=== PATIENT | male | born 1965 | race Caucasian/White ===

== ENCOUNTER → 2020-10-04 14:03 | Outpatient (BNVA) | payer MEDICARE, SELFPAY | PROVIDERS: PCP Internal Medicine; Referring Provider Internal Medicine; Visit Provider Anesthesiology | DX: M51.36 Other intervertebral disc degeneration, lumbar region (principal); M46.1 Sacroiliitis, not elsewhere classified | CPT/HCPCS: 99202 ==

== ENCOUNTER 2020-11-20 05:27 | Outpatient (REF) | payer MEDICARE, SELFPAY ==
--- NOTE | 2020-11-20 07:35 | FL_ITS ---
EXAMINATION: XR FLUOROSCOPY WITH IMAGES CLINICAL INFORMATION: Sacroiliitis COMPARISON: None. TECHNIQUE: Fluoroscopy performed by Pilar Williamson NP. Fluoroscopy time: 0.2 minutes DAP: 0.915 Gycm2 Images: 2 FINDINGS: There is needle positioned along bilateral inferior right SI joint with contrast opacifying the SI joint and adjacent soft tissues. FL/FL guidance in treatment room IMPRESSION: Fluoroscopy was provided to the referring physician for bilateral SI joint injection.
== END 2020-11-20 05:28 | disposition home or self-care (01) ==
LOC: HO.RADIR 05:27
PROVIDERS: Visit Provider Anesthesiology
DX: M46.1 Sacroiliitis, not elsewhere classified (principal)
CPT/HCPCS: 27096; J3300; Q9967

== ENCOUNTER 2025-07-10 13:52 | Outpatient (AMB) | payer MEDICARE, SELFPAY ==
--- NOTE | 2025-07-10 14:05 | A.OFFVIS_ITS ---
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 He comes to discuss about his sleep apnea diagnosed in 2023, and since then he has been prescribed a CPAP device with auto PAP mode , the mask he describes is fullface. His issue is that he has difficulty in using the mask. So he ends up using for a few hours every night and misses putting it on frequently. He remains tired most of the time, especially for the afternoons. Also complains of getting short of breath on walking fast or up hills, with a burning-like sensation in front of his chest. He has had history of coronary artery disease since 2016, when he had chest tightness and pain in the left wrist, on cardiac catheterization found to have coronary artery disease and requiring angioplasty and 1 stent. He say is recently his cardiac team has checked him with echocardiogram as well as has done a stress test, and told him that does not have any significant cardiac problem at this time. However during the stress test he say is he did get short of breath towards the end of the test and could not go beyond 8 minutes. His compliance remains poor, his use of CPAP is somewhat irregular and sub optimal. He was advised to use Flonase 1 or 2 sprays in each nostril before putting on the CPAP mask, and say is he still feels somewhat uncomfortable with the mask. He is here to discuss various possibilities / and different masks which may im prove his compliance. This gentleman is only moderately obese. He is single living by himself. Has been disabled due to back problem since 2000. He does look after his mother who is currently in an assisted living. He does have history of mild anxiety syndrome currently use thing bupropion 750 mg t.i.d., that is a relatively high dose. In spite of thus he does not get enough or good sleep at night. I talked to him if he feels depressed or anxious. And he admits that yes to some extent. He also has history of cervical as well as lumbar radiculopathy. Patient has the been only moderately obese and never. He does have some Flakita adjustment of the teeth , but no real retrognathia . Current complaints are that he tosses and turns around at night and does not getting good sleep. and feeling somewhat sluggish and tired during the daytime [facility] Medical History (Updated 07/10/25 @ 16:02 by Alberto Addison MD) Anxiety Dyspnea on exhalation MAYE on CPAP Sacroiliitis Disc degeneration, lumbar Review of Systems Const All systems reviewed & are unremarkable except as noted in HPI and below Eyes Reports no additional complaints ENT Reports nasal congestion (Only mild) and Reports neck pain Card Reports chest pain (Feeling of chest burning, not real pain) and Reports dyspnea on exertion (Mild to moderate, no cough or wheezing) Resp Reports as per HPI and Reports dyspnea on exertion (Mild to moderate, no cough or wheezing) GI Reports no additional complaints Reports no additional complaints Musc Reports back pain and Reports neck pain Skin/Breast Reports system reviewed and no additional complaints, except as documented Neuro Reports no additional complaints Psych Reports anxiety Endo Reports no additional complaints Melvin/Lymph Reports no additional complaints Aller/Immun Reports no additional complaints Physical Exam Vital Signs: Last Vital Signs Pulse 60 07/10/25 14:06 Resp 18 07/10/25 14:06 BP 110/65 07/10/25 14:06 Pulse Ox 97 07/10/25 14:06 Oxygen Delivery Method Room Air 07/10/25 14:06 BMI result Body Mass Index 29.2 Const General: healthy appearing, comfortable, no acute distress, alert, awake and anxious Orientation/consciousness: patient oriented x3 HEENT Head: Yes normal to inspection General nose exam: No nasal polyps present and No nasal discharge present Face and sinus: Yes sinuses nontender Mouth: oropharynx normal Throat: Yes posterior oropharynx normal Eyes General: appearance normal, both eyes and all related structures Neck Neck: Yes normal visual inspection, Yes no lymphadenopathy, Yes trachea midline and Yes no JVD Thyroid: Thyroid normal Chest Chest palpation & inspection: normal inspection of the chest, normal palpation of entire chest wall and no tenderness Resp Effort & Inspection: normal respiratory effort Auscultation: clear to auscultation bilaterally, no crackles, no rales, no rhonchi and no wheezes Cardio Palpation: normal PMI Rate: regular rate Rhythm: regular rhythm Heart sounds: no gallops and no murmurs Peripheral pulses: Peripheral pulses 2+ throughout GI Palpation (GI): Soft to palpation, nontender, No hepatosplenomegaly present and no masses Auscultation: normal bowel sounds Back/Spine/Pelvis Thoracic/Lumbar Spine: thoracic and lumbar spine normal to inspection and thoraco-lumbar ROM limited Skin General skin exam: no rashes or lesions noted Neuro General: patient oriented x3 and no focal motor deficits Cranial nerves: Yes CN's II-XII intact bilaterally Extrem General: Yes normal to inspection, Yes no clubbing, cyanosis or edema and Yes no calf tenderness Psych Appearance: grossly normal and well kempt Speech and movement: Normal speech and movement present Results Reviewed Results Reviewed: I reviewed the report of polysomnogram study at sleep medicine services on 01/31/2024 interpretation: The study showed fragmented sleep with moderate degree of obstructive sleep apnea that was most prominent in REM stage and supine position Total sleep time AHI 22. REM sleep AHI 43. Use of the auto CPAP with pressure setting of 6-16 was recommended Assessment & Plan Assessment & Plan (1) MAYE on CPAP: Comment: This gentleman was diagnosed to have obstructive sleep apnea, moderately severe, by is study on 01/31/2024. Has been on CPAP therapy with what he describes a fullface mask and Auto Pap mode 6-16 cmS . He claims that he has difficulty in using the CPAP as the mask remains uncomfortable. His compliance remains suboptimal. However we do not have any compliance report to go by. He say is that he was referred to see me over here as referred by his cardiol ogist, and told that he should come and discuss about using other masks are other mode of treatment such as BiPAP etc.. Code(s): G47.33 - Obstructive sleep apnea (adult) (pediatric) Category: Medical Plan: Before we recommend any different way of treating I told him that his best option is to continue using the CPAP. Need to get more information from his DME provider, about the type of mask that he is using, and need to look at a compliance report, if we can get 1. Mr. Ngo was not aware of which company he got the CPAP from. He is going to find out for sure and let us know. (2) Dyspnea on exhalation: Comment: He say is that when he walks fast or goes up hill he starts having shortness of breath which is more than expected, he does not have any cough or wheezing. He does get burning. Sensation in her front of a chest Has had echocardiogram and a stress test which has not shown any significant ischemia. I told him that we can do pulmonary function test to make sure that he does not have any pulmonary issue. And so he will be scheduled for pulmonary function test, and then we will discuss about . What to do Code(s): R06.09 - Other forms of dyspnea Category: Medical Plan: Patient scheduled for pulmonary function test, and will be rechecked in 2 months (3) Anxiety: Comment: I think he does have a component of anxiety. And may be some depression. He is on bupropion 750 mg t.i.d. that is a relatively large doze. I asked him to reconfirm the doze of bupropion. Code(s): F41.9 - Anxiety disorder, unspecified Category: Medical Plan: We discussed about the relaxation technique, when he feels anxious. He may need counseling. Orders: Orders PFT pulmonary function test Today R06.09 - Other forms of dyspnea Coding Level of Care Code New Pt Level 4 (98655) Diagnoses MAYE on CPAP G47.33 Dyspnea on exhalation R06.09 Anxiety F41.9
[2025-07-10 14:06] VITALS: BP 110/65; PULSE 60; RESP 18; O2SAT 97; BMI 29.2
--- OUTSIDE RECORDS SUMMARY | 2025-07-10 15:12 | XMS_ITS ---
Author Name [facility] Organization Unknown Encounters Encounter Type Encounter Reason Primary Diagnosis Location Date Ambulatory [facility] 08/26/2024 Care Team Organization Name Specialty Phone Email Start Date End Da te [facility] 03/11/2025 [facility] 09/23/20222023
--- OUTSIDE RECORDS SUMMARY | 2025-07-10 15:12 | XMS_ITS | Clinical Summary ---
Author Organization [place] [address] [address] [facility] Building Address [address] [place], [place] [address], [place] [address] Phone Care Team Providers Care Physician Recruiter Name Role Phone Christopher Daniels MD Primary Care Provider [phone] Allergies Active Allergy Reactions Criticality Noted Date Comments Bee Pollen 09/23/2024 Lisinopril 06/14/2021 Morphine Nausea And Vomiting 03/03/2018 Other Swelling Medium 07/08/2022 Medications amitriptyline (ELAVIL) 10 mg tablet Take 1 Tablet by mouth at bedtime for 180 days. 11/13/20 23 Active methocarbamoL (ROBAXIN) 750 mg tablet Take 1 Tablet by mouth. Active aspirin 81 mg EC tablet Take 81 mg by mouth daily. 03/03/20 18 Active glucose blood test strip Use to check blood sugars twice daily 04/19/20 24 Active blood-glucose meter kit Check blood sugar twice a day. 04/18/20 24 Active ONETOUCH DELICA LANCETS MISC Use to test blood sugars twice daily 04/19/20 24 Active EPINEPHrine (EPIPEN) 0.3 mg/0.3 mL injection Inject 0.3 mL (0.3 mg total) into the thigh if needed for anaphylaxis. Call 911 after use. 2 each 1 09/23/20 24 025 Active omeprazole (PriLOSEC) [address] capsuleIndicati ons:Dysphagia, unspecified type TAKE 1 CAPSULE BY MOUTH DAILY. TAKE IN AM ON EMPTY STOMACH, WAIT 30 MINS AND THEN EAT 90 capsule 3 01/09/20 25 Active metoprolol tartrate (LOPRESSOR) 25 mg tablet TAKE 1 TABLET BY MOUTH TWICE A DAY 180 tablet 1 03/23/20 25 Active cetirizine (ZyrTEC) 10 mg tablet Take 1 tablet (10 mg total) by mouth 1 (one) time each day. Active dapagliflozin propanediol (FARXIGA) 10 mg tablet Take 1 tablet (10 mg total) by mouth 1 (one) time each day. 90 tablet 1 03/28/20 25 Active allopurinoL (ZYLOPRIM) 100 mg tablet TAKE 2 TABLETS BY MOUTH EVERY DAY 180 tablet 1 04/11/20 25 Active B complex-vitamin C-folic acid (NEPHRO-MICHELLE) 0.8 mg tablet Take 1 tablet by mouth 1 (one) time each day. Active kassandra, Zingiber officinalis, 500 mg capsule Take by mouth. Active cholecalciferol (VITAMIN D-3) 50 mcg (2,000 unit) tablet Take 1 tablet (2,000 Units total) by mouth 1 (one) time each day. Active ascorbic acid (VITAMIN C) 500 mg tablet Take 1 tablet (500 mg total) by mouth 1 (one) time each day. Active fluticasone propionate (FLONASE) 50 mcg/actuation nasal spray Administer 1 spray into each nostril 1 (one) time each day. Shake gently. Before first use, prime pump. After use, clean tip and replace cap. Active rosuvastatin (CRESTOR) 10 mg tablet TAKE 1 TABLET BY MOUTH 1 TIME EACH DAY. 90 tablet 1 06/16/20 25 Active losartan (COZAAR) 25 mg tablet TAKE 1 TABLET BY MOUTH EVERY DAY 90 tablet 3 06/21/20 25 Active losartan (COZAAR) 25 mg tablet TAKE 1 TABLET BY MOUTH EVERY DAY 04/27/20 24 025 Discontinued rosuvastatin (CRESTOR) 10 mg tablet Take 1 tablet (10 mg total) by mouth 1 (one) time each day. 90 tablet 1 12/28/19 25 025 Discontinued Active Problems Problem Noted Date Diagnosed Date Lower extremity edema 03/28/2025 Assessment & Plan (03/28/2025 4:03 PM EDT): Patient does have some lower extremity edema today that feels like it might be +1 pitting. I am going to update an echocardiogram. I am going to have him weigh himself every day and reach out to the office if he gains more than 2 pounds in a day or 5 pounds in a week. He does report that his weights tend to oscillate between 205 and 210 but does not typically go above or below that. I am going to have him start Farxiga 10 mg p.o. daily. I educated him on the side effects of this medication. Type 2 diabetes mellitus wit hout complication, without long-term current use of insulin ([facility] V24, [facility] V28) 09/23/2024 Family history of prostate cancer 09/23/2024 Burping 08/17/2024 Colon polyp 08/17/2024 Swallowing difficulty 08/17/2024 Fatty liver 03/23/2024 Gout 11/13/2023 Cardiomegaly 09/17/2023 Overview (08/17/2024): Last Assessment & Plan: Did review with him that his echocardiogram from November 2021 did demonstrate his LV systolic function was normal. The right ventricle that was enlarged. Is not clear if the enlarged right ventricle could be due to sleep apnea and he is now agreed to a sleep test. I am going to repeat his echocardiogram to see if there is been a change in his size of his right ventricle. Assessment & Plan (03/28/2025 4:03 PM EDT): Going to repeat echocardiogram. Echo in 2001 did demonstrate his LV systolic function was normal. The right ventricle was enlarged. Snoring 09/17/2023 Overview (08/17/2024): Last Assessment & Plan: He does snore. I told him he could have sleep apnea. I spoke about a sleep test before but did not follow through but he is willing to do that now. Leg swelling 03/03/2022 Overview (08/17/2024): Last Assessment & Plan: He does note leg swelling more towards the end of the day left greater than right. I do not think it is due to heart failure. I told him he could be due to sleep apnea. Other possibility is if he could have some venous insufficiency. We will schedule venous studies on him. Chronic ankle pain 07/05/2021 Chronic low back pain 02/21/2021 Lumbar disc herniation 03/08/2019 Overview (08/17/2024): Follows with pain management, [facility], Dr. Earl Ramsey Cervical disc herniation 03/03/2018 Coronary atherosclerosis 03/03/2018 Overview (08/17/2024): - Status post PCI to the mid LAD after presenting with an anteroseptal STEMI at [facility] in 2015; after the procedure, there was residual clot noted in the D1 branch of the LAD but with normal blood flow and therefore it was not intervened upon, the remaining arteries had only minor luminal irregularities, there was moderate collateral flow from the RPDA to the distal LAD - His anginal symptoms included severe left wrist pain and shortness of breath - Has had a negative exercise stress echo in 2019 and more recently a negative ETT in March 2023 after exercising just over 10 minutes to 87% of max predicted heart rate - Most recent echocardiogram in November 2023 showed normal biventricular size and systolic function with normal regional wall motion of the left ventricle and ejection fraction of 60 to 65%, no hemodynamically significant valve disease, normal left ventricular diastolic function Last Assessment & Plan: No recurrent anginal symptoms and reassuring echocardiogram very recently. He is clinically euvolemic on exam. At this point, I think we need to target more aggressive risk factor modification. For someone who has had an NSTEMI, he needs to be on maximally tolerated statin. He was agreeable to increasing his dose to 10 mg at bedtime. This should be further titrated to 40 mg at bedtime at upcoming visits as long as the patient tolerates and is agreeable. He does not have any statins listed under his allergy/intolerability list. Therefore, we will cautiously escalate. Because he is a diabetic, I completely agree with initiation of Jardiance per PCP. For now he will continue low-dose metoprolol and baby aspirin. We reviewed the importance of a heart healthy diet-particularly because of diabetes a low carbohydrate diet that is rich in fresh fruits and vegetables. I also recommended he try to eat the bulk of his meals towards the beginning of the day allowing sufficient time for fasting and metabolic rest with adequate oral hydration of course. I encouraged him in his excellent exercise routine. Assessment & Plan (03/28/2025 4:03 PM EDT): No new anginal symptoms. Patient should continue on the metoprolol, baby aspirin, rosuvastatin. Instructed to call 911 or go to the emergency room should the patient begin to experience chest pain or pressure lasting greater than 10 minutes does not resolve with rest. Hyperlipidemia 03/03/2018 Overview (08/17/2024): Last Assessment & Plan: Increasing statin dose which should be further increased at future visits as tolerated by the patient to maximal dose. Triglycerides are elevated likely reflecting elevated blood sugars. Recommended a low carbohydrate diet. Also recommended for now [id number] fish oil supplements. Assessment & Plan (03/28/2025 4:03 PM EDT): Well-controlled. Please see lipid panel above, LDL cholesterol is 68. Continue on the rosuvastatin 10 mg p.o. daily. Hypertension 03/03/2018 Overview (08/17/2024): Last Assessment & Plan: Elevated at today's visit but generally well-controlled per the patient at home. Recommended regular home blood pressure checks-perhaps once or twice a week. Continue current regimen of metoprolol and losartan for now. Goal blood pressure should be less than 130/90 mmHg at rest. Recommended a low-sodium diet. Assessment & Plan (03/28/2025 4:03 PM EDT): Well-controlled the appointment. Continue current medication regimen Encounters Date Type Department Care Team Description 06/30/2025 10:00 AM EDT Ancillary Procedure [facility] - [address] [place] [address] Coronary artery disease, unspecified vessel or lesion type, unspecified whether angina present, unspecified whether [place] or transplanted heart 06/08/2025 Telephone [facility] [address] [place], [place] [phone] Crhistopher Daniels MD 06/01/2025 Telephone Internal [facility] - [address] [place], [place] [phone] Christopher Daniels MD 06/01/2025 Telephone [facility] - [address] [place] [address] Adam Bravo NP 05/30/2025 2:30 PM EDT Ancillary Procedure [facility] - [address] [place] [address] Atherosclerosis of coronary artery, unspecified vessel or lesion type, unspecified whether angina present, unspecified whether [place] or transplanted heart 05/26/2025 Telephone Internal Medicine - [address] [place], [place] [phone] Christopher Daniels MD 05/16/2025 Telephone Pediatrics - [address] [place], [place] [phone] Christopher Daniels MD 04/28/2025 1:15 PM EDT Ancillary Procedure [facility] - [address] [place] [phone] Atherosclerosis of coronary artery, unspecified vessel or lesion type, unspecified whether angina present, unspecified whether [place] or transplanted heart 04/20/2025 Telephone Internal Medicine - [address] [place], [place] [phone] Christopher Daniels MD 04/20/2025 Telephone Internal Medicine - [address] [place], [place] [phone] Christopher Daniels MD 04/12/2025 1:15 PM EDT Clinical Support [facility] [address] [place], [place] [phone] from Last 3 Months Immunizations Name Administration Dates Next Due Hepatitis B (Cjacijr-F-Jywlu , Recombivax HB-Adult) 19yo and older 04/12/2025,10/25/2024,09/23/2024 Influenza Quadravalent, MDCK , 0.5ml, preservative free (Flucelvax) 6mo and older 09/10/2022,08/22/2020 Influenza Quadrivalent, 0.5m l, preservative free (Fluarix; FluLaval; Fluzone) ages 6mo and older (Afluria) 3yo and older 09/02/2023,09/16/2021,08/28/2016 Influenza Quadrivalent, with preservative (Fluzone; Afluria) 6mo and older 11/03/2014 Influenza Whole 08/19/2012 Influenza trivalent, 0.5mL, preservative free (Fluarix; FluLaval; Fluzone) ages 6mo and older (Afluria) 3 years and older 08/30/2024,08/20/2015 Influenza trivalent, with pr eservative (Fluzone; Afluria) 6mo and older 09/14/2021,08/05/2017,09/01/2010 Moderna SARS-CoV-2 COVID-19, mRNA, LNP-S, preservative free 04/15/2022,10/30/2021,03/13/2021,02/14 Pfizer (ages 12 & older) ASHISH S-CoV-2 COVID-19, mRNA, LNP-S, lani-sucrose, preservative free 04/18/2022 Pfizer SARS-CoV-2 COVID-19, mRNA, LNP-S, preservative free 10/30/2021 Pneumococcal conjugate 20 va lent (Prevnar 20, PCV 20) 2mo and older 09/02/2023 Pneumococcal polysaccharide 23 valent (Pneumovax 23) 2yo and older 04/25/2008 Tdap Tetanus diptheria acell ular pertussis (Boostrix; Adacel) 7yo and older 08/30/2024,08/22/2020,04/25/2009 Zoster recombinant (Shingrix ) 19yo and older 11/17/2022,09/10/2022 Surgical History Surgery Date Site/Laterality Comments TONSILLECTOMY PROCEDURE: HISTORICAL TONSILLECTOMY; COMMENT: as child CORONARY STENT PLACEMENT 2013 PROCEDURE: STENT, CORONARY, KARL; COMMENT: 1 stent CATARACT EXTRACTION Right PROCEDURE: HISTORICAL CATARACT REMOVAL COLONOSCOPY PROCEDURE: HISTORICAL COLONOSCOPY COLONOSCOPY 09/18/2021 PROCEDURE: HISTORICAL COLONOSCOPY; COMMENT: negative Medical History Medical History Date Comments Cervical disc herniation 03/03/2018 DX:Cerv ical disc herniation Coronary atherosclerosis 03/03/2018 DX:Zeinab nary atherosclerosis; COMMENT: Comments: NH 02/16/16 with angioplasty and stent x1. Hyperlipidemia 03/03/2018 DX:Hyperlipidemi a Hypertension 03/03/2018 DX:Hypertension Colon polyp DX:Colon polyp Irritable bowel syndrome DX:Irri table bowel syndrome Esophageal reflux DX:Esophageal reflux Swallowing difficulty DX:Swallow ing difficulty Burping DX:Burping Family history of colon cancer in father DX:Family history of colon cancer in father Elevated liver enzymes DX:Elevat ed liver enzymes Hypercholesterolemia DX:Hypercho lesterolemia Family history of cardiovascular disease DX:Family history of cardiovascular disease Fatty liver DX:Fatty liver Family History Medical History Relation Name Comments Colon cancer Father cad, chf,ckd, H [place] Coronary artery disease Father Heart failure Father Arthritis Hypertension Father Other: fall Maternal Grandfather Heart failure Maternal Grandmother Dementia Mother Other: scoliosis Sister Prostate cancer Uncle Relation Name Status Comments Father Maternal Grandfather Maternal Grandmother Mother Alive Paternal Grandfather Paternal Grandmother Sister Alive Uncle Social History Tobacco Use Types Packs/Day Years Used Date Smoking Tobacco: Former Smokeless Tobacco: Never Alcohol Use Standard Drinks/Week Comments Not Currently 0 (1 standard drink = 0.6 oz pur e alcohol) Sex and Gender Information Value Date Recorded Sex Assigned at Not on file Legal Sex Male 11:39 PM EST Gender Identity Not on file Sexual Orientation Not on file Obstetrics History Last Filed Vital Signs Vital Sign Reading Time Taken Comments Blood Pressure 118/64 06/30/2025 10:44 AM EDT Pulse 56 03/29/2025 1:03 PM EDT Temperature - - Respiratory Rate - - Oxygen Saturation 95% 03/28/2025 12:57 PM EDT Inhaled Oxygen Concentration - - Weight 93.4 kg (206 lb) 06/30/2025 10:44 AM EDT Height 172.7 cm (5' 8 ) 06/30/2025 10:44 AM EDT Body Mass Index 31.32 06/30/2025 10:44 AM EDT Plan of Treatment Upcoming Encounters Date Type Department Care Team (Late st Contact Info) Description 08/10/2025 11:20 AM EDT Office Visit Gastroenterology - [address] [place] [phone] Valarie Dennis NP [address] [facility] [address] [place] [address] 08/29/2025 11:30 AM EDT Office Visit Nephrology - [address] [phone] Michael Plzaa MD [address] [facility] [address] [place] [phone] 10/10/2025 11:30 AM EST Office Visit Internal Medicine - [address] [phone] Christopher Daniels MD [address] [place] [phone] Health Maintenance Due Date Last Done Comments Diabetes: Annual Foot Exam 1975 Diabetes: Annual Retina Eye Exam 1975 Hepatitis A Vaccines (1 of 2 - Risk 2-dose series) 1984 Medicare Annual Wellness Visit 10/25/2022 Depression Screening 11/16/2024 RSV Immunization Adult Patients (1 - Risk 60-74 years 1-dose series) 2025 Influenza Vaccine (#1) 2025 , 09/02/2023, 09/10/2022, Additional history exists Diabetes: Blood Sugar Control Test (HGBA1C) 09/29/2025 03/29/2025, 09/23/2024, 03/23/2024, Additional history exists Diabetes: Annual Urine Albumin-Creatinine Ratio (uACR) 03/29/2026 03/29/2025 Social Influencers of Health Screening 03/29/2026 03/29/2025 Diabetes: Annual GFR (Glomerular Filtration Rate) 04/12/2026 04/12/2025, 09/23/2024, 06/22/2024, Additional history exists Hypertension/CHF/CAD Annual BMP Blood Test 04/12/2026 04/12/2025, 09/23/2024, 06/22/2024, Additional history exists Cholesterol Screening (Lipid Panel) 04/12/2030 04/12/2025, 06/22/2024, 06/22/2024 Colorectal Cancer Screening: Colonoscopy 09/18/2031 09/18/2021 DTaP,Tdap,and Td Vaccines (4 - Td or Tdap) 08/30/2034 08/30/2024, 08/22/2020, 04/25/2009 Hepatitis C Screening Completed 09/02/2022 Zoster Vaccines Completed 11/17/2022, 09/10/2022 Pneumococcal Vaccine: 50+ Years Completed 09/02/2023, 04/25/2008 COVID-19 Vaccine Completed 08/01/2024, 04/2023, 09/24/2022, Additional history exists HIV Screening Completed 09/23/2024 Hepatitis B Vaccines Completed 04/12/2025, 10/25/2024, 09/23/2024 HIB Vaccines Aged Out No longer eligi ble based on patient's age to complete this topic HPV Vaccines Aged Out No longer eligi ble based on patient's age to complete this topic IPV Vaccines Aged Out No longer eligi ble based on patient's age to complete this topic MMR Vaccines Aged Out No longer eligi ble based on patient's age to complete this topic Meningococcal ACWY Vaccine Aged Out N o longer eligible based on patient's age to complete this topic Meningococcal B Vaccine Aged Out No l onger eligible based on patient's age to complete this topic RSV Immunization Patients Under 20 months Aged Out No longer eligible based on patient's age to complete this topic Varicella Vaccines Aged Out No longer eligible based on patient's age to complete this topic Procedures Procedure Name Priority Date/Time Associated Diagnosis Comments STRESS ECHOCARDIOGRAM EXERCISE WITH CONTRAST Routine 05/30/2025 3:33 PM EDT Atherosclerosis of coronary artery, unspecified vessel or lesion type, unspecified whether angina present, unspecified whether [place] or transplanted heart STRESS TEST ONLY EXERCISE Routine 04/28/2025 1:32 PM EDT Atherosclerosis of coronary artery, unspecified vessel or lesion type, unspecified whether angina present, unspecified whether [place] or transplanted heart COMPREHENSIVE METABOLIC PANEL Routine 04/12/2025 11:36 AM EDT Coronary atherosclerosis of [place] coronary artery LIPID PANEL WITH REFLEX TO DIRECT LDL Routine 04/12/2025 11:36 AM EDT Coronary atherosclerosis of [place] coronary artery MICROALBUMIN CREATININE URINE RATIO Routine 03/29/2025 1:35 PM EDT Type 2 diabetes mellitus without complication, without long-term current use of insulin ([facility] V24, [facility] V28) HEMOGLOBIN A1C Routine 03/29/2025 1:35 PM EDT Type 2 diabetes mellitus without complication, without long-term current use of insulin ([facility] V24, [facility] V28) HIV 1, 2 ANTIBODY, P24 ANTIGEN WITH REFLEX TO DIFFERENTIATION Routine 09/23/2024 2:46 PM EST Screen for STD (sexually transmitted disease) HEPATITIS C SCREENING Routine 09/02/2022 HM COLONOSCOPY Routine 09/18/2021 from Last 3 Months or Most Recently Relevant to Health Maintenance Results * STRESS ECHOCARDIOGRAM EXERCISE WITH CONTRAST (05/30/2025 3:33 PM EDT) IVSD 0.8 0.6 - 1.0 cm CV PACS STRESS LVIDD 5.4 4.2 - 5.8 cm CV PACS STRESS LVIDS 2.8 2.5 - 4.0 cm CV PACS STRESS LVPWD 0.9 0.6 - 1.0 cm CV PACS STRESS Relative Wall Thickness ratio 0.33 CV PACS STRESS FS 48 % CV PACS STRESS LV Mass 2D 167 g CV PACS STRESS LVIDD Index 2.60 cm/m2 CV PACS STRESS LVIDS Index 1.35 cm/m2 CV PACS STRESS LV Mass Index 2D 80 g/m2 CV PACS STRESS BSA 2.13 m2 CV PACS STRESS Target HR 136 bpm CV PACS STRESS Baseline HR 67 bpm CV PACS STRESS Peak HR 133 bpm CV PACS STRESS Estimated workload 12.1 METS CV PACS STRESS Percent HR 83 % CV PACS STRESS Exercise/injec tion duration (min) 10 min CV PACS STRESS Exercise/injec tion duration (sec) 40 sec CV PACS STRESS Max HR Percent 83 % CV PA CS STRESS Baseline SBP 100 mmHg CV PACS STRESS Baseline DBP 62 mmHg CV PACS STRESS Peak SBP 128 mmHg CV PACS STRESS Peak DBP 78 mmHg CV PACS STRESS Rate Pressure Product 17,024.0 mmHg*bpm CV PACS STRESS Anatomical Region Laterality Modality Ultrasound Narrative 05/31/2025 12:12 PM EDT Normal exercise echocardiogram stress test at a target heart rate and above average functional capacity. Normal left ventricular size and systolic function. Right ventricle appears mildly enlarged with normal systolic function. No ischemic EKG change. No arrhythmia. Exercise capacity was above average. Normal blood pressure response. Left Ventricle Left ventricle cavity size is normal. Wall thickness is normal. Systolic function is normal with an ejection fraction of 60-65%. Right Ventricle Right ventricle cavity is mildly dilated. Systolic function is normal. Mitral Valve Mitral valve structure is normal. There is no significant mitral valve regurgitation. Tricuspid Valve Tricuspid valve structure is normal. Aortic Valve There is no significant regurgitation. There is no evidence of aortic valve stenosis. Study Details Overall the study quality was adequate. Definity contrast was given to enhance imaging. Study was difficult due to: poor endocardial visualization. Stress Findings A Jorje protocol stress test was performed. Overall, the patient's exercise capacity was above average. The patient reached stage 4. Total stress time was 10 min and 40 sec. The test was stopped because the patient experienced fatigue and shortness of breath. The patient's hemodynamic response was suboptimal due to medication. Blood pressure demonstrated a normal response. Heart rate demonstrated a blunted response. The patient reported shortness of breath during the stress test. ECG 60-year-old male with a past medical history significant for coronary artery disease-status post PCI to the mid LAD in 2016, hypertension, hyperlipidemia, who is experiencing intermittent chest discomfort, into rule out ischemia. Patient on metoprolol, ASA and losartan during testing. Baseline EKG: Sinus Rhythm There were no arrhythmias during stress. There were no arrhythmias during recovery. Reduce sensitivity as patient did not reach 85% of max predicted heart rate. No ischemic changes on the EKG following strict criteria. Echo Post Stress Left ventricular cavity size decreased from baseline. Left ventricular systolic function improved from baseline. Normal wall motion, unchanged from baseline. Procedure Note Adam Bravo NP / Ana Wise MD - 05/31/2025 Normal exercise echocardiogram stress test at a target heart rate andabove average functional capacity. Normal left ventricular size and systolic function. Right ventricleappears mildly enlarged with normal systolic function. No ischemic EKG change. No arrhythmia. Exercise capacity was above average. Normal blood pressure response. us Adam Bravo NP CV ECHO PROCEDURES Final Result * Exercise stress test (04/28/2025 1:32 PM EDT) Target HR 136 bpm CV STRESS ONLY Baseline HR 63 bpm CV STRES S ONLY Baseline SBP 101 mmHg CV STRE SS ONLY Baseline DBP 62 mmHg CV STRE SS ONLY O2 sat rest 93 % CV STRES S ONLY Peak HR 128 bpm CV STRESS ONLY Peak SBP 128 mmHg CV STRESS ONLY Peak DBP 70 mmHg CV STRESS ONLY Estimated workload 12.1 METS CV STRESS ONLY Rate Pressure Product 16,384.0 mmHg*bpm CV STRESS ONLY Percent HR 80 % CV STRESS ONLY Exercise/inject ion duration (min) 10 min CV STRESS ONLY Exercise/inject ion duration (sec) 1 sec CV STRESS ONLY Max HR Percent 80 % CV ST RESS ONLY ST Depression (mm) 0 mm CV STRESS ONLY Anatomical Region Laterality Modality Cardiac Diagnost ic Narrative 05/04/2025 2:19 PM EDT The patient exercised for 10 minutes and 1 second achieving only 80% of max predicted heart rate. He achieved a 12.1 METS workload. His exercise capacity was Exercise stress test was performed. Exercise capacity was above average for age and gender. Normal blood pressure response. There were no ischemic ECG changes. Patient did experience symptoms of chest pain during stress test. The chest discomfort resolved in recovery. Symptom positive exercise stress test at a submaximal heart rate. Patient was only able to achieve 80% of max predicted heart rate but at this good workload, he experienced chest discomfort. Would recommend additional exercise stress testing with imaging for further evaluation. Stress Findings A Jorje protocol stress test was performed. Overall, the patient's exercise capacity was above average. The patient reached stage 3. Total stress time was 10 min and 1 sec. Blood pressure demonstrated a normal response. Heart rate demonstrated a blunted response. The patient reported chest discomfort during the stress test. Patient reported burning chest discomfort which resolved in recovery. ECG 60-year-old male patient with history of coronary artery disease presents for an exercise stress test to evaluate burning chest discomfort symptoms. The ECG shows normal sinus rhythm. The ECG axis is normal. There were no arrhythmias during stress. There is no ST segment changes during stress. There were no arrhythmias during recovery. The result of the stress ECG was non-diagnostic for ischemia due to failure to achieve 85 percent of the maximum age-predicted heart rate. Patient also had chest discomfort with exercise. Would recommend repeating stress testing with imaging for further evaluation of his chest discomfort. Procedure Note Louise Guzman NP / Sara Mcdonald MD - 05/04/2025 The patient exercised for 10 minutes and 1 second achieving only 80% ofmax predicted heart rate. He achieved a 12.1 METS workload. His exercisecapacity was Exercise stress test was performed. Exercise capacity was above averagefor age and gender. Normal blood pressure response. There were no ischemic ECG changes. Patient did experience symptoms of chest pain during stress test. Thechest discomfort resolved in recovery. Symptom positive exercise stress test at a submaximal heart rate. Patientwas only able to achieve 80% of max predicted heart rate but at this goodworkload, he experienced chest discomfort. Would recommend additionalexercise stress testing with imaging for further evaluation. us Adam Bravo NP CV STRESS PROCEDURES Final Resul t * Lipid panel with reflex to direct LDL (04/12/2025 11:36 AM EDT) Cholesterol 110 0 - 200 mg/dL LAB CHEMISTRY METHOD 04/12/2025 6:11 PM EDT [facility] Triglycerides 100 0 - 150 mg/dL LAB CHEMISTRY METHOD 04/12/2025 6:11 PM T [facility] HDL 42 >=40 mg/dL LAB CHEMISTRY METHOD 04/12[facility]25 [facility] LDL Calculated 48 0 - 100 mg/dL LAB CHEMISTRY METHOD 04/12/2025 6:11 PM EDT [facility] VLDL Cholesterol Lee 20 mg/dL LAB CHEMISTRY METHOD 04/12/2025 6:11 PM EDT [facility] Non HDL Chol. (LDL+VLDL) 68 <145 mg/dL LAB CHEMISTRY METHOD 04/12/2025 6:11 PM [facility] Chol/HDL Ratio 2.6 0.0 - 4.4 LAB CHEMISTRY METHOD 04/12/2025 6:11 PM T [facility] Blood Venous blood specimen / Unknown Venipuncture / Unknown 04/12/2025 11:36 AM EDT 04/12/2025 11:36 AM EDT us Adam Bravo NP LAB BLOOD ORDERABLES Final Resul t [facility] [address] [place] [address], * (ABNORMAL) Comprehensive metabolic panel (04/12/2025 11:36 AM EDT) [facility] Sodium 138 133 - 145 mmol/L LAB CHEMISTRY METHOD 04/12/2025 6:11 PM [facility] Potassium 4.6 3.5 - 5.5 mmol/L LAB CHEMISTRY METHOD 04/12/2025 6:11 PM [facility] Chloride 105 96 - 110 mmol/L LAB CHEMISTRY METHOD 04/12/2025 6:11 PM [facility] CO2 28 21 - 32 mmol/L LAB CHEMISTRY METHOD 04/12/2025 6:11 PM [facility] Anion Gap 5 3 - 11 LAB CHEMISTRY METHOD 04/12/2025 6:11 PM [facility] Glucose 101(H) 70 - 100 mg/dL LAB CHEMISTRY METHOD 04/12/2025 6:11 PM [facility] BUN 14 5 - 25 mg/dL LAB CHEMISTRY METHOD 04/12/2025 6:11 PM [facility] Creatinine 1.40(H) 0.70 - 1.30 mg/dL LAB CHEMISTRY METHOD 04/12/2025 6:11 PM [facility] eGFR 58(L) >=60 mL/min/1. 73m2 LAB CHEMISTRY METHOD 04/12/2025 6:11 PM [facility] Comment:Calculation based on the Chronic Kidney Disease Epidemiology Collaboration (CKD-EPI) equation refit without adjustment for race. BUN/Creatinine Ratio 10.0 LAB CHEMISTRY METHOD 04/12/2025 6:11 PM [facility] Calcium 8.8 8.5 - 10.5 mg/dL LAB CHEMISTRY METHOD 04/12/2025 6:11 PM [facility] AST (SGOT) 26 10 - 42 unit/L LAB CHEMISTRY METHOD 04/12/2025 6:11 PM [facility] ALT (SGPT) 28 10 - 60 unit/L LAB CHEMISTRY METHOD 04/12/2025 6:11 PM [facility] Alkaline Phosphatase 51 42 - 121 unit/L LAB CHEMISTRY METHOD 04/12/2025 6:11 PM [facility] Total Protein 7.3 6.0 - 8.0 g/dL LAB CHEMISTRY METHOD 04/12/2025 6:11 PM [facility] Albumin 4.1 3.2 - 5.0 g/dL LAB CHEMISTRY METHOD 04/12/2025 6:11 PM EDT [facility] Total Bilirubin 0.9 0.0 - 1.4 mg/dL LAB CHEMISTRY METHOD 04/12/2025 6:11 PM EDT [facility] Blood Venous blood specimen / Unknown Venipuncture / Unknown 04/12/2025 11:36 AM EDT 04/12/2025 11:36 AM EDT Adam Bravo NP LAB BLOOD ORDERABLES Final Resul t Performing Organization Address [facility]/ZIP Co de Phone Number [facility] [address] [place] [address], [place] [phone] * Microalbumin creatinine urine ratio (03/29/2025 1:35 PM EDT) Creatinine, Urine 178.0 mg/dL LAB CHEMISTRY METHOD 03/29/2025 5:45 PM EDT [facility] Microalb, Ur 14.3 0.0 - 29.0 mg/L LAB CHEMISTRY METHOD 03/29/2025 5:45 PM EDT [facility] Microalb/Creat Ratio 8 <30 mg/g creat LAB CHEMISTRY METHOD 03/29/2025 5:45 PM EDT [facility] Urine Urine specimen obtained by clean catch procedure / Unknown Non-blood Collection / Unknown 03/29/2025 1:35 PM EDT 03/29/2025 1:35 PM EDT Christopher Daniels MD LAB URINE ORDERABLES Final Resu lt [facility] [address] [place] [address], [place] [phone] * Hemoglobin A1c (03/29/2025 1:35 PM EDT) Hemoglobin A1C 6.2 <6.5 % LAB CHEMISTRY METHOD 03/29/2025 8:32 PM EDT [facility] Mean Bld Glu Estim. 131 mg/dL LAB CHEMISTRY METHOD 03/29/2025 8:32 PM EDT [facility] Blood Venous blood specimen / Unknown Venipuncture / Unknown 03/29/2025 1:35 PM EDT 03/29/2025 1:35 PM EDT Christopher Daniels MD LAB BLOOD ORDERABLES Final Resu lt [facility] [address] [place] [address], * HIV 1,2 antibody, p24 antigen with reflex to differentiation (09/23/2024 2:46 PM EST) [facility] HIV Combo AB/AG Negative Negative LAB CHEMISTRY METHOD 09/23/2024 7:29 PM EST [facility] Blood Venous blood specimen / Unknown Venipuncture / Unknown 09/23/2024 2:46 PM EST 09/23/2024 2:46 PM EST Narrative [facility] - 09/23/2024 7:29 PM EST This assay is a 4th generation assay allowing for earlier detection of HIV infection by detecting the presence of the HIV-1 p24 antigen as well as the traditional antibodies to HIV type 1 (including group O) and type 2. Use of a 4th generation assay is the current CDC recommendation for HIV screening. Christopher Daniels MD LAB BLOOD ORDERABLES Final Resu lt [facility] [address] [place] [address], [place] [phone] * Hepatitis C Screening (09/02/2022) Pathologist [facility] Hepatitis C Screening abstracted Scott Keita MD HEALTH MAINTENANCE Final Result * Colonoscopy (09/18/2021) HM Colonoscopy no interpretation , abstracted Anatomical Region Laterality Modality Other us Historical Provider HEALTH MAINTENANCE Final Result from Last 3 Months or Most Recently Relevant to Health Maintenance Insurance [employer] Care Teams Physician Recruiter Relationship Specialty Start Date End Date Christopher Daniels MD [address] [place] [address] [place] [address] PCP - General Internal Medicine 02/12/22
--- OUTSIDE RECORDS SUMMARY | 2025-07-10 15:12 | XMS_ITS | Clinical Summary ---
Author Organization [facility] Address [address] [place] [address] Care Team Providers Care Hair Sample Matcher Name Role Phone Marisol Goddard MD Primary Care Provider + Allergies Active Allergy Reactions Criticality Noted Date Comments Morphine Nausea And Vomiting 07/16/2021 Medications Medication Sig Dispensed Refills Start Date End Date Status atorvastatin (LIPITOR) tablet 40 mg Take 40 mg by mouth daily. 0 Active metoprolol tartrate (LOPRESSOR) 25 MG tablet Take by mouth 2 (two) times a day. 0 Active aspirin EC 81 MG tablet Take 81 mg by mouth daily. 0 Active amitriptyline (ELAVIL) tablet 25 mg Take 25 mg by mouth every night at bedtime. 0 Active Social History Tobacco Use Types Packs/Day Years Used Date Smoking Tobacco: Never Smokeless Tobacco: Never Alcohol Use Standard Drinks/Week Comments Not Currently 0 (1 standard drink = 0.6 oz pur e alcohol) Sex and Gender Information Value Date Recorded Sex Assigned at Not on file Gender Identity Not on file Sexual Orientation Not on file Job Start Date Occupation Industry Not on file Not on file Not on file Last Filed Vital Signs Vital Sign Reading Time Taken Comments Blood Pressure - - Pulse 86 07/16/2021 10:42 AM EDT Temperature 37 C (98.6 F) 07/16/2021 10:42 AM EDT Respiratory Rate - - Oxygen Saturation 96% 07/16/2021 10:42 AM EDT Inhaled Oxygen Concentration - - Weight 90.7 kg (200 lb) 07/16/2021 10:42 AM EDT Height 172.7 cm (5' 8 ) 07/16/2021 10:42 AM EDT Body Mass Index 30.41 07/16/2021 10:42 AM EDT Plan of Treatment Health Maintenance Due Date Last Done Comments Hepatitis C Screening 1965 COVID-19 Vaccine (#1) 1965 Depression Screening 1977 Preventative Health Evaluation 1983 Colon Cancer Screening (Colonoscopy) 2010 Shingrix-Zoster Vaccine (1 o f 2) 2015 Influenza Vaccine (#1) 2025 1, 08/22/2020 DTap / Tdap / Td (2 - Td or Tdap) 08/22/2030 08/22/2020 RSV Adult > 60+ Yrs or (1 - 1-dose 75+ series) 2040 Hepatitis B Vaccines Aged Out No long er eligible based on patient's age to complete this topic Pneumococcal Vaccine Aged Out No long er eligible based on patient's age to complete this topic RSV Ped < 20 months Aged Out No longe r eligible based on patient's age to complete this topic Care Teams Hair Sample Matcher Relationship Specialty Start Date End Date Marisol Goddard MD [address] [facility] [address] [place] [address] YOSELYN Arora [phone] PCP - General Internal Medicine 03/27/21
== END 2025-07-10 14:50 | disposition home or self-care (01) ==
LOC: HO.HPS 13:52
PROVIDERS: PCP Internal Medicine; Visit Provider Internal Medicine
DX: G47.33 Obstructive sleep apnea (adult) (pediatric) (principal); R06.09 Other forms of dyspnea; F41.9 Anxiety disorder, unspecified
CPT/HCPCS: 99204

== ENCOUNTER → 2025-07-10 13:52 | Outpatient (BNVA) | payer MEDICARE, SELFPAY | PROVIDERS: PCP Internal Medicine; Visit Provider Internal Medicine | DX: G47.33 Obstructive sleep apnea (adult) (pediatric) (principal); Z99.89 Dependence on other enabling machines and devices; R06.09 Other forms of dyspnea; F41.9 Anxiety disorder, unspecified | CPT/HCPCS: 99202 ==

== ENCOUNTER → 2025-08-14 19:30 | Outpatient (REF) | payer MEDICARE, SELFPAY ==
--- OUTSIDE RECORDS SUMMARY | 2025-08-10 11:20 | XMS_ITS | Encounter Summary ---
Author Organization [facility] Address [address] [place] [address] Care Team Providers Care Payer Specialist Name Role Phone Christopher Daniels MD Primary Care Provider [phone] Reason for Referral * Imaging (Routine) - Pending Review Specialty Diagnoses / Procedures Referred By Bhavani nevarez Referred To Contact Radiology Diagnoses Fatty liver Procedures US Abdomen Complete Valarie Dennis NP [address] [address] Phone: tel: fax: [address] Phone: tel: Referral ID Status Reason Start Date Expiration Date V isits Requested Visits Authorized [id number] Pending Review 08/10/2025 08/10/2026 1 1 Reason for Visit * Reason Comments Follow-up Due for colon, and u /s fatty liver Encounter Details Date Type Department Care Team ([facility] st Contact Info) Description 08/10/2025 11:20 AM EDT Office Visit Gastroenterology - [place] [address] [facility] [address] [place] [phone] Valarie Dennis NP [address] [facility] [address] [place], [place] [phone] Family history of colon cancer in father (Primary Dx); Fatty liver; Obesity (BMI 30-39.9) Social History Tobacco Use Types Packs/Day Years Used Date Smoking Tobacco: Former Smokeless Tobacco: Never Alcohol Use Standard Drinks/Week Comments Not Currently 0 (1 standard drink = 0.6 oz pur e alcohol) Sex and Gender Information Value Date Recorded Sex Assigned at Not on file Legal Sex Male 11:39 PM EST Gender Identity Not on file Sexual Orientation Not on file documented as of this encounter Last Filed Vital Signs Vital Sign Reading Time Taken Comments Blood Pressure 116/72 08/10/2025 11:12 AM EDT Pulse 56 08/10/2025 11:12 AM EDT Temperature - - Respiratory Rate - - Oxygen Saturation 97% 08/10/2025 11:12 AM EDT Inhaled Oxygen Concentration - - Weight 92.4 kg (203 lb 9.6 oz) 08/10/2025 11:12 AM EDT Height 172.7 cm (5' 8 ) 08/10/2025 11:12 AM EDT Body Mass Index 30.96 08/10/2025 11:12 AM EDT documented in this encounter Progress Notes * Valarie Dennis NP - 08/10/2025 11:20 AM EDT CHIEF COMPLAINT: Follow-up (Due for colon, and u/s fatty liver) HPI: Orion Haas is a 60 y.o. old male whose PMH includes burping, cardiomegaly, cervical disc herniation, chronic ankle pain, chronic low back pain, coronary atherosclerosis, gout, hyperlipidemia, hypertension, leg swelling, snoring, lumbar disc herniation, type 2 diabetes mellitus, family historyof prostate cancer, lower extremity edema and former tobacco use presents to the gastroenterology department today for evaluation of colonoscopy. Former adult patient. Last office visit 01/15/2024. He is here to establish care. Patient reports history of fatty liver. He states he was completing ultrasounds every 6 months. However, nobody has reached out to him regarding completing the ultrasound since his previous provider retired. He also has a history of colon cancer in his father. His last colonoscopy in 2020 was normal. He thinks he should have colonoscopies every 3 years instead of 5 years. Today, he denies fever, nausea, vomiting, acid reflux or heartburn, dysphagia, odynophagia, hematemesis, discomfort, loss ofappetite, unintentional weight loss, melena or hematochezia. He denies alcohol, tobacco or marijuana use. No historical EGD on file. Colonoscopy 09/18/2021: The entire examined colon is normal. No specimens collected. He was recommended to repeat colonoscopy in 5 years for surveillance. Colonoscopy due September 2026. ROS: GENERAL: No malaise, significant weight loss or fever HEENT: No changes in hearing or vision, nose bleeds or swallowing problems NECK: Chronic neck pain RESPIRATORY: No cough, wheezing or shortness of breath CARDIOVASCULAR: No chest pain GI: See HPI MUSCULOSKELETAL: Chronic back pain SKIN: No lesions, rash or itching PAST MEDICAL HISTORY: Patient Active Problem List Diagnosis Burping Cardiomegaly Cervical disc herniation Chronic ankle pain Chronic low back pain Colon polyp Coronary atherosclerosis Fatty liver Gout Hyperlipidemia Hypertension Leg swelling Lumbar disc herniation Snoring Swallowing difficulty Type 2 diabetes mellitus without complication, without long-term current use of insulin ([facility] V24, [facility] V28) Family history of prostate cancer Lower extremity edema PAST SURGICAL HISTORY: Past Surgical History: Procedure Laterality Date CATARACT EXTRACTION Right PROCEDURE: HISTORICAL CATARACT REMOVAL COLONOSCOPY PROCEDURE: HISTORICAL COLONOSCOPY COLONOSCOPY 09/18/2021 PROCEDURE: HISTORICAL COLONOSCOPY; COMMENT: negative CORONARY STENT PLACEMENT 2013 PROCEDURE: STENT, CORONARY, KARL; COMMENT: 1 stent TONSILLECTOMY PROCEDURE: HISTORICAL TONSILLECTOMY; COMMENT: as child SOCIAL HISTORY: Social History Tobacco Use Smoking status: Former Smokeless tobacco: Never Substance Use Topics Alcohol use: Not Currently Drug use: No FAMILY HISTORY: Family History Problem Relation Name Age of Onset Dementia Mother Heart failure Father Arthritis Colon cancer Father cad, chf,ckd, HTN Coronary artery disease Father Hypertension Father Other (Other: scoliosis) Sister Heart failure Maternal Grandmother Other (Other: fall) Maternal Grandfather Prostate cancer Uncle MEDICATIONS: Outpatient Medications Marked as Taking for the 08/10/25 encounter (Office Visit) with Valarie Dennis NP Medication Sig Dispense Refill allopurinoL (ZYLOPRIM) 100 mg tablet TAKE 2 TABLETS BY MOUTH EVERY DAY 180 tablet 1 amitriptyline (ELAVIL) 10 mg tablet Take 1 Tablet by mouth at bedtime for 180 days. amoxicillin-clavulanate (AUGMENTIN) 500-125 mg per tablet Take 1 tablet by mouth 2 (two) times a day. ascorbic acid (VITAMIN C) 500 mg tablet Take 1 tablet (500 mg total) by mouth 1 (one) time each day. aspirin 81 mg EC tablet Take 81 mg by mouth daily. B complex-vitamin C-folic acid (NEPHRO-MICHELLE) 0.8 mg tablet Take 1 tablet by mouth 1 (one) time eachday. blood-glucose meter kit Check blood sugar twice a day. cetirizine (ZyrTEC) 10 mg tablet Take 1 tablet (10 mg total) by mouth 1 (one) time each day. cholecalciferol (VITAMIN D-3) 50 mcg (2,000 unit) tablet Take 1 tablet (2,000 Units total) by mouth1 (one) time each day. EPINEPHrine (EPIPEN) 0.3 mg/0.3 mL injection Inject 0.3 mL (0.3 mg total) into the thigh if needed for anaphylaxis. Call 911 after use. 2 each 1 fluticasone propionate (FLONASE) 50 mcg/actuation nasal spray Administer 1 spray into each nostril 1 (one) time each day. Shake gently. Before first use, prime pump. After use, clean tip and replace cap. kassandra, Zingiber officinalis, 500 mg capsule Take by mouth. glucose blood test strip Use to check blood sugars twice daily losartan (COZAAR) 25 mg tablet TAKE 1 TABLET BY MOUTH EVERY DAY 90 tablet 3 methocarbamoL (ROBAXIN) 750 mg tablet Take 1 Tablet by mouth. metoprolol tartrate (LOPRESSOR) 25 mg tablet TAKE 1 TABLET BY MOUTH TWICE A DAY 180 tablet 1 omeprazole (PriLOSEC) [address] capsule TAKE 1 CAPSULE BY MOUTH DAILY. TAKE IN AM ON EMPTY STOMACH, WAIT 30 MINS AND THEN EAT 90 capsule 3 ONETOUCH DELICA LANCETS MISC Use to test blood sugars twice daily rosuvastatin (CRESTOR) 10 mg tablet TAKE 1 TABLET BY MOUTH 1 TIME EACH DAY. 90 tablet 1 ALLERGIES: Allergies Allergen Reactions Other Swelling Bee Pollen Lisinopril Morphine Nausea And Vomiting PHYSICAL EXAM: Visit Vitals BP 116/72 Pulse 56 Ht 1.727 m (68 ) Wt 92.4 kg (203 lb 9.6 oz) SpO2 97% BMI 30.96 kg/m?? Smoking Status Former BSA 2.06 m?? APPEARANCE: Alert and in no acute distress EYES: Conjunctiva and sclera normal. MOUTH/THROAT: No erythema, exudates or lesions noted NECK: Neck supple, no adenopathy HEART: RRR with normal S1 and S2 LUNG: Clear to auscultation ABDOMEN: Soft non tender, no ascites, guarding, or rebound. RECTAL: Exam deferred NEURO: Awake, alert and oriented x 3 SKIN: Skin color, texture, turgor normal. LABS: No pertinent labs within the last 1 month IMAGING: No pertinent imaging within the last 1 month IMPRESSION: 1. Family history of colon cancer in father 2. Fatty liver 3. Obesity (BMI 30-39.9) PLAN: Orion Haas is a 60 y.o. old male whose PMH includes burping, cardiomegaly, cervical disc herniation, chronic ankle pain, chronic low back pain, coronary atherosclerosis, gout, hyperlipidemia, hypertension, leg swelling, snoring, lumbar disc herniation, type 2 diabetes mellitus, family historyof prostate cancer, lower extremity edema and former tobacco use presents for evaluation for colonoscopy. 1. Family history of colon cancer in father: Colonoscopy 09/18/2021: The entire examined colon is normal. No specimens collected. He was recommended to repeat colonoscopy in 5 years for surveillance. Colonoscopy due September 2026. There are no alarm features requiring scheduling colonoscopy sooner than recommended. Colonoscopy to be completed in September 2026. 2. Fatty liver; 3. Obesity: Patient does not have cirrhosis, history of hepatitis B or hepatocellular carcinoma requiring surveillance ultrasound every 6 months. I will complete ultrasound yearly. I will place order for ultrasound and liver fibrosis test today. He verbalizes understanding. I discussed the natural progression of MASLD including its bidirectional association with components of MetS (hypertension,hyperlipidemia, glucose intolerance) with patient. I explained that MASLD management is comprised of identification and optimal control of the components of MetS and weight loss through lifestyle modifications, physical exercise (ideally 150 mins/week moderate exercise over 3-5 days), and dietary changes including portion control, mindful eating, avoiding refined sugars, processed food and animal fat, reducing carbs, and increasing the intake of lean protein, fruits, vegetables, and plant- based fats (Mediterranean diet). We reviewed that the greater the degree of weightloss, the more significant the improvement in liver histology. Body weight reduction of at least 5%is necessary to improve steatosis, 7%-10% is needed to improve the histopathological features of steatohepatitis and fibrosis. I will update on further care and management depending on lab results. Follow-up in 1 year. Patient agrees with the above plan and understands the need to follow up as indicated. Please note, this note may have been created in part by using griddig dictation software, and therefore, it may contain typographical and/or grammatical errors inherent in a voice recognition software program Orders Placed This Encounter Procedures US Abdomen Complete Liver fibrosis, fibrotest-actitest panel US ABDOMEN COMPLETE documented in this encounter Plan of Treatment Upcoming Encounters Date Type Department Care Team (Late st Contact Info) Description 08/15/2025 9:15 AM EDT [facility] [address] [place] [address] 08/29/2025 11:30 AM EDT [facility] [address] [place] [address] Michael Plaza MD [address] [facility] [address] [place] [phone] 10/10/2025 11:30 AM EST Office Visit Internal Medicine - [address] [phone] Christopher Daniels MD [address] [place] [address] 11/30/2025 10:50 AM EST Office Visit [facility] [address] [place] [phone] Sara Mcdonald MD [address] [place] [address] [address] [place] [phone] 08/10/2026 11:20 AM EDT Office Visit Gastroenterology - [place] [address] [place] [phone] Valarie Dennis NP 175 [facility] [address] [place] [address] Scheduled Orders Name Type Priority Associated Diagnoses Orde r Schedule Liver fibrosis, fibrotest-actitest panel Lab Routine Fatty liver 1 Occurrences starting 08/10/2025 until 08/10/2026 US Abdomen Complete Imaging Routine Fatty liver Expected: 08/10/2025, Expires: 08/10/2026 documented as of this encounter Visit Diagnoses Diagnosis Family history of colon cancer in father- Primary Fatty liver Other chronic nonalcoholic liver disease Obesity (BMI 30-39.9) documented in this encounter Discontinued Medications Medication Sig Discontinue Reason Start Date End Da te dapagliflozin propanediol (FARXIGA) 10 mg tablet Take 1 tablet (10 mg total) by mouth 1 (one) time each day. 03/28/2025 08/10/2025 documented as of this encounter Historical Medications * This list may reflect changes made after this encounter. amoxicillin-clavu lanate (AUGMENTIN) 500-125 mg per tablet Take 1 tablet by mouth 2 (two) times a day. 08/01/2025 added in this encounter Care Teams Payer Specialist Relationship Specialty Start Date End Date Christopher Daniels MD [address] [place] [address] PCP - General Internal Medicine 02/12/22 documented as of this encounter
--- OUTSIDE RECORDS SUMMARY | 2025-08-14 21:41 | XMS_ITS | Data Portability ---
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 I encouraged him to use it daily. His nasal endoscopy was benign with a slight septal deflection to the right. No sinusitis or nasal polyps. He will also see an collection support specialist in March for the dry eye component of his symptoms [email or web address] Not available 01/25/2025 14:20:33 07/28/2025 07/28/2025 Assessment: - Left tear duct pain. - Status post eye surgery, approximately two months ago. Plan: The patient's symptoms appear to be related to the tear duct system rather than the sinuses. I recommend that the patient follow up with Dr. Snow, who performed the eye surgery, as this issue may require specialized evaluation and treatment. The patient should contact Dr. Snow's office promptly to discuss the new symptoms and potentially schedule an earlier appointment before the planned follow-up in August. I suspect that the patient may benefit from antibiotic eye drops or other medications tailored to tear duct issues. I advised the patient to monitor for signs of infection and to seek immediate care if symptoms worsen. Nasal endoscopy without any evidence of sinus infection. He would like to follow-up in 1 year for continued surveillance of his nasal issues [email or web address] Not available 07/28/2025 13:59:53 Plan of Treatment Reminders Order Date Submit Date Provider Last Modified By Organization Details Last Modified Time Details Appointments Establish ed 15 2025 11:00A M NEDA MCCARTNEY MD Not available Not available Not available Lab None recorded. Referral None recorded. Procedures None recorded. Surgeries None recorded. Imaging None recorded. Medication Orders None recorded. Patient TargetsNo targets recorded. Patient Instructions Encounter Date Encounter Id Patient Instructions Last Modified By Organization Details Last Modified Time 07/28/2025 [id number] - Contact Dr. Snow's office promptly to discuss new symptoms and schedule an earlier appointment if possible. - Monitor for signs of infection and seek immediate care if symptoms worsen. [email or web address] Not available 07/28/2025 13:57:40 Please note: Parts of this encounter note have been generated by AI based on audio conversation. Patient consent was required prior to utilizing this technology. Content review was required prior to finalizing the note. [email or web address] Not available 07/28/2025 13:57:40 Reason for Referral None Reported. Problems Name Problem SNOMED Code Status Onset Date Resolution Date Notes Provider Name and Address Organization Details Recorded Time Hypertensiv e disorder 63173086 Active 2017 NEDA MCCARTNEY MD [address] [place] [address], [place], [address], [facility] - [facility] [place] 5 20:42:08 Coronary atheroscler osis 877506398 Active 2017 NEDA MCCARTNEY MD [address] [place] [address], [place], [address], [facility] - [facility] [place] 5 20:42:08 Displacemen t of cervical interverteb ral disc 970538546 Active 2017 NEDA MCCARTNEY MD [address] [place] [address], [place], [address], [facility] - [facility] [place] 5 20:42:08 Hyperlipide magaly 95904469 Active 2017 NEDA MCCARTNEY MD [address] [place] [address], [place], [address], [facility] - [facility] [place] 5 20:42:08 Prolapsed lumbar interverteb ral disc 231360678 Active 2018 NEDA MCCARTNEY MD [address] [place] [address], [place], [address], [place] [facility] [place] 5 20:42:08 Chronic low back pain 786545268 Active 2020 NEDA MCCARTNEY MD [address] [address], [facility] [place], [address], [place] [facility] [place] 5 20:42:08 Chronic ankle pain 2873458998144 9 Active 2020 NEDA MCCARTNEY MD [address] [address], [place], [address], [place] [facility] [place] 5 20:42:08 Swelling of lower limb 838800456 Active 2021 NEDA MCCARTNEY MD [address] [address], [place], [address], [place] [facility] [place] 20:42:08 Snoring 28452855 Active 2022 NEDA MCCARTNEY MD [address] [address], [place], [address], [place] [facility] [place] 20:42:08 Cardiomegal y 9425974 Active 2022 NEDA MCCARTNEY MD [address] [address], [place], [address], [place] [facility] [place] 20:42:08 Gout 87708145 Active 2022 NEDA MCCARTNEY MD 100 [facility] E 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, [place], [address], [place] [facility] [place] 5 20:42:08 Burping 905914480 Active 2023 NEDA MCCARTNEY MD 100 [facility] [address] [facility], [place], [address], [place] [facility] [place] 5 20:42:08 Dysphagia 57506786 Active 2023 NEDA MCCARTNEY MD [address] [facility] [place], [place], [address], [place] [facility] [place] 20:42:08 Polyp of colon 01353866 Active 2023 NEDA MCCARTNEY MD 100 [facility],[address], [place], [address], [place] [facility] [place] 20:42:08 Type 2 diabetes mellitus without complicatio n 330553569 Active 2023 NEDA MCCARTNEY MD 100 [facility],[address], [place], [address], [place] [facility] [place] 20:42:08 Family history of malignant neoplasm of prostate 632528587 Active 2023 NEDA MCCARTNEY MD 100 [facility], [address] [facility], [place], [address], [place] [facility] [place] 20:42:08 Mast cell activation syndrome 4894049212835 9100 Active 2024 NEDA MCCARTNEY MD [address] [facility] [place], [place], [address], [place] [facility] [place] 14:12:54 Deviated nasal septum 549553906 Active 2024 NEDA MCCARTNEY MD 100 [facility], [address], [place], [address], [place] [facility] [place] 20:40:33 Dacryocysti tis of left lacrimal sac 0165222867362 00 Active 2024 NEDA MCCARTNEY MD [address] [facility] [place], [place], [address], [place] [facility] [place] 13:57:30 Problem Notes None recorded. Procedures Surgical History Date Name Laterality Status Provider Name and Address Organization Details Recorded Time 09/12/202 5 NasalEndoscop y_DP completed NEDA MCCARTNEY MD 100 [facility],[address] [address], [place], [address], [facility] 07/28/2025 13:58:06 5 NasalEndoscop y_DP completed NEDA MCCARTNEY MD 100 [facility],[address] [address], [place], [address], [facility] - [facility] 01/25/2025 14:12:48 Cataract Surgery completed Anitha Rivera [facility] 01/25/2025 13:53:26 Imaging Results None recorded. Procedure Notes None recorded. Medical Equipment None Reported. Allergies Allergen ID Allergen Name Allergen Category Reaction Reaction Severity Criticality Documentation Date Start Date Code Code System Note Provider Name and Address Organization Details Recorded Time 981591 lisinopri l medicatio n Not available Not available Not available 01/25/20252020 92567 RxNorm NEDA MCCARTNEY MD 100 [facility],[address] [address], [place], [address], [facility] 20:42:28 959847 morphine medicatio n Not available Not available Not available 01/25/20252017 7052 RxNorm Other react ions and sever ities : 'Naus ea And Vomit ing'. NEDA MCCARTNEY MD 100 [facility],[address] [address], [place], [address], [facility] - [facility] 20:42:28 538808 bee pollen environme nt,medica tion Not available Not available Not available 07/27/20252023 40517 7 RxNorm NEDA MCCARTNEY MD 100 [facility],[address] [address], [place], [address], [facility] 5 20:42:27 Medications Name Sig Start Date Stop Date Status Note LastModified by Organization Details LastModified Time prednisone 20 mg tablet TAKE 3 TABS FOR 3 DAYS, TAKE 2 TABS FOR 3 DAYS, AND TAKE 1 TAB FOR 3 DAYS. 07/28 completed Not Available Not Available Not Available allopurinol 100 mg tablet TAKE 2 TABLETS BY MOUTH EVERY DAY active Not Available Not Available No t Available aspirin 81 mg tablet,rusty yed release 2017 active Not Available Not Available Not Avai lable dexamethaso ne sodium phosphate 0.1 % eye drops INSTILL 1 DROP INTO BOTH EYES TWICE A DAY 01/25 completed Not Available Not Available Not Available prednisolon e acetate 1 % eye drops,suspe nsion INSTILL 1 DROP INTO BOTH EYES TWICE A DAY 01/25 completed Not Available Not Available Not Available methocarbam ol 750 mg tablet active Not Available Not Available Not Available OneTouch Ultra Test strips USE TO CHECK BLOOD SUGARS TWICE DAILY active Not Available Not Available No t Available amitriptyli ne 10 mg tablet 2022 active Not Available Not Available Not Avai lable losartan 25 mg tablet TAKE 1 TABLET BY MOUTH EVERY DAY active Not Available Not Available No t Available omeprazole 20 mg capsule,del ayed release TAKE 1 CAPSULE BY MOUTH DAILY. TAKE IN AM ON EMPTY STOMACH, WAIT 30 MINS AND THEN EAT active Not Available Not Available No t Available epinephrine 0.3 mg/0.3 mL injection, auto-inject or 0.3 mg by injection route. 09/24 completed Not Available Not Available Not Available metformin ER 500 mg tablet,exte nded release 24 hr TAKE 1 TABLET BY MOUTH TWICE A DAY WITH MEALS 01/25 completed Not Available Not Available Not Available rosuvastati n 5 mg tablet TAKE 2 TABLETS BY MOUTH EVERY DAY active Not Available Not Available No t Available rosuvastati n 10 mg tablet TAKE 1 TABLET BY MOUTH 1 TIME EACH DAY. active Not Available Not Available No t Available metoprolol tartrate 25 mg tablet TAKE 1 TABLET BY MOUTH TWICE A DAY active Not Available Not Available No t Available diflupredna te 0.05 % eye drops INSTILL 1 DROP INTO BOTH EYES 3 TIMES A DAY FOR 1 WEEK THEN TWICE A DAY FOR 2 WEEKS active Not Available Not Available No t Available OneTouch Ultra2 Meter USE TO CHECK BLOOD SUGAR TWICE A DAY active Not Available Not Available No t Available OneTouch Delica Plus Lancet 30 gauge USE TO TEST BLOOD SUGARS TWICE DAILY active Not Available Not Available No t Available Vitals Date Recorded Body height Body mass index (BMI) Body weight Provider Name and Address Organization Details Last Updated DateTime 07/28/2025 175.26 cm 29.5 kg/m2 59328.47 g TOPHER MORGAN [place] - [facility] 07/28/2025 13:39:01 Social History None recorded. Functional Status None recorded. Mental Status None recorded. Family History Nothing Reported. Medical History Condition Response Diabetes Y Anxiety Y GERD/Reflux Y High Cholesterol Y Heart Attack (MD) Y Migraines Y Hypertension Y Immunizations Vaccine Type Date Status Note Provider Nam e and Address Organization Details Recorded Time Influenza, split virus, quadrivalent, preservative 4 completed NEDA MCCARTNEY MD [address] [facility] [place] [address] [place] [address], [address], [place] [facility] 07/27/2025 20:42:15 Influenza, MDCK, quadrivalent, PF 0 completed NEDA MCCARTNEY MD [address] [place], [place] [address]on [place],[address], [address], [place] - [facility] 07/27/2025 20:42:15 Influenza, MDCK, quadrivalent, PF 2 completed NEDA MCCARTNEY MD [address] [place], [place] [address]on [place],[address], [address], [place] [facility] 07/27/2025 20:42:15 zoster recombinant 3 completed NEDA MCCARTNEY MD [address] [place], [place] [address]on [place],[address], [address], [place] [facility] 07/27/2025 20:42:15 zoster recombinant 2 completed NEDA MCCARTNEY MD [address] [place], [place] [address]on [place],[address], [address], [place] [facility] 07/27/2025 20:42:15 COVID-19, mRNA, LNP-S, PF, 100 mcg/0.5mL dose or 50 mcg/0.25mL dose 1 completed NEDA MCCARTNEY MD [address] [place], [place] [address]on [place] [address] [place] [address], [address], [place] [facility] 07/27/2025 20:42:15 COVID-19, mRNA, LNP-S, PF, 100 mcg/0.5mL dose or 50 mcg/0.25mL dose 1 completed NEDA MCCARTNEY MD [address] [place] [address] [place] [address], [address], [place] [facility] 07/27/2025 20:42:15 COVID-19, mRNA, LNP-S, PF, 100 mcg/0.5mL dose or 50 mcg/0.25mL dose 2 completed NEDA MCCARTNEY MD [address] [facility] [place] [address] [place] [address], [address], [place] [facility] 07/27/2025 20:42:15 COVID-19, mRNA, LNP-S, PF, 100 mcg/0.5mL dose or 50 mcg/0.25mL dose 1 completed NEDA MCCARTNEY MD [address] [address] [facility] [facility] [place] [address] [place] [address], [address], [place] [facility] 07/27/2025 20:42:15 COVID-19, mRNA, LNP-S, PF, 30 mcg/0.3 mL dose 1 completed NEDA MCCARTNEY MD 100 [facility],[address], [address], [place] [facility] [place] 07/27/2025 20:42:15 Pneumococcal conjugate PCV20, polysaccharide FFD133 conjugate, adjuvant, PF 3 completed NEDA MCCARTNEY MD [address] [address] [facility] [place],[address], [address], [place] [facility] [place] 07/27/2025 20:42:15 COVID-19, mRNA, LNP-S, PF, 30 mcg/0.3 mL dose, lani-sucrose 2 completed NEDA MCCARTNEY MD [address] [facility] [address] [facility] [place] [address] [place] [address], [address], [place] [facility] [place] 07/27/2025 20:42:15 pneumococcal polysaccharide PPV23 8 completed NEDA MCCARTNEY MD [address] [facility] [address] [facility] [place] [address] [place] [address], [address], [place] [facility] [place] 07/27/2025 20:42:15 Tdap 9 completed NEDA MCCARTNEY MD [address] [facility] [address] [facility] [facility] [place] [address] [place] [address], [address], [place] [facility] [place] 07/27/2025 20:42:15 Tdap 0 completed NEDA MCCARTNEY MD [address] [address] [facility] [facility] [place] [address] [place] [address], [address], [place] [facility] 07/27/2025 20:42:15 Tdap 4 completed NEDA MCCARTNEY MD [address] [address] [facility] [facility] [place] [address] [place] [address], [address], [place] [facility] 07/27/2025 20:42:15 Influenza, split virus, trivalent, preservative 7 completed NEDA MCCARTNEY MD 100 [facility],[place] [address] [place] [address], [address], [place] [facility] [place] 07/27/2025 20:42:15 Influenza, split virus, trivalent, preservative 0 completed NEDA MCCARTNEY MD 100 [facility],[place] [address] [place] [address], [address], [place] [facility] [place] 07/27/2025 20:42:15 Influenza, split virus, trivalent, preservative 1 completed NEDA MCCARTNEY MD 100 [facility],[address], [address], [place] [facility] [place] 07/27/2025 20:42:15 Influenza, split virus, trivalent, PF 5 completed NEDA MCCARTNEY MD [address] [facility] [address] [facility] [facility] [place] [address] [place] [address], [address], [place] [facility] 07/27/2025 20:42:15 Influenza, split virus, trivalent, PF 4 completed NEDA MCCARTNEY MD 100 [facility],[place] [address] [place] [address], [address], [place] [facility] [place] 07/27/2025 20:42:15 influenza, whole 2 completed NEDA MCCARTNEY MD [address] [place] [address], [address], [place] [facility] 07/27/2025 20:42:15 Hep B, adult 4 completed NEDA MCCARTNEY MD [address] [place] [address], [address], [place] [facility] [place] 07/27/2025 20:42:15 Hep B, adult 4 completed NEDA MCCARTNEY MD [address] [place] [address], [address], [place] [facility] 07/27/2025 20:42:15 Influenza, split virus, quadrivalent, PF 6 completed NEDA MCCARTNEY MD [address] [place] [address], [address], [place] [facility] [place] 07/27/2025 20:42:15 Influenza, split virus, quadrivalent, PF 3 completed NEDA MCCARTNEY MD [address] [place] [address], [address], [place] [facility] 07/27/2025 20:42:15 Influenza, split virus, quadrivalent, PF 1 completed NEDA MCCARTNEY MD [address] [place] [address], [address], [place] [facility] 07/27/2025 20:42:15 Past Encounters Encounter ID Performer Location Encounter Start Date Encounter Closed Date Diagnosis/Indication Diagnosis SNOMED-CT Code Diagnosis ICD10 Code Diagnosis IMO Codes Diagnosis Note [id number] NEDA MCCARTNEY MD [facility] [address] [address] 01/25/2025 13:16:21 01/25/2025 14:21:55 Mast cell activation syndrome [id number] 1581754 D89.40 [id number] NEDA MCCARTNEY MD [facility] [address] [address] 07/28/2025 13:21:26 07/28/2025 14:00:31 Mast cell activation syndrome 4246609950 5103309 D89.40 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 No sinusitis or nasal polyps. Dacryocyst itis of left lacrimal sac 7958803679 21620 H04.302 [id number] Health Concerns Section Related Observation LastModified by Organization Detai ls LastModified Time None Recorded Concern Status LastModified by Organization Details LastModified Time None Recorded Advance Directives Directive None Recorded Payers Insurance Date Sequence Insurance Name Policy Number Policy Pinto Covered Member ID Pinto Member ID Guarantor Name 07/25/2025 1 [employer] [id number] Orionmariano Haas [id number] Orion Haas Notes Date Note Type Note Provider Name and Address Organization Details Recorded Time 01/25/2025 text/html ROS as noted in the HPI allergies - itchy throattriggers cough, sneezewatery eyes 2000 exposed to industrial ammonia - lost sense of smell Dr Smith ([facility]), dx with MCAS (Mast cell activation syndrome)frequent lip swelling controlled with rx cetirizine QOD NEDA MCCARTNEY MD [address] [place] [address], [phone] [place] [facility] 01/25/2025 14:20:50 07/28/2025 text/html allergies - itchy throat triggers cough, sneeze watery eyes 2000 exposed to industrial ammonia - lost sense of smell Dr Smith ([facility]), dx with MCAS (Mast cell activation syndrome) frequent lip swelling controlled with rx cetirizine QOD Orion Haas is a 60-year-old male who presents for left-sided tear duct pain. He reports experiencing severe pressure and discomfort in the area near his left sinus and tear duct for the past week and a half. The symptoms began after an incident at the gym where he hit his forehead on the floor. He describes the sensation as similar to water rushing into the nostrils when underwater. He has been using Flonase for nasal dryness, which he started a couple of weeks ago. He also reports persistent burning and watery eyes following an eye surgery performed approximately two months ago for vision-related issues. Despite the surgery, his tear ducts continue to bother him, particularly on the left side. Additionally, he mentions experiencing dryness in his nose, loss of smell, and fatigue over the past few days. He denies any trauma to his eyes or ears during the gym incident. NEDA MCCARTNEY MD [address] [place] [address], [address], [facility] - [facility] 07/28/2025 14:00:08
--- OUTSIDE RECORDS SUMMARY | 2025-08-14 21:41 | XMS_ITS | Clinical Summary ---
Author Organization [facility] Address [address] [place] [address] Care Team Providers Care It Investment/Portfolio Manager Name Role Phone Marisol Goddard MD Primary [...] age to complete this topic Care Teams It Investment/Portfolio Manager Relationship Specialty Start Date End Date Marisol Goddard MD [address] [facility] [address] [place] [address] YOSELYN Arora [phone] PCP - General Internal Medicine 03/27/21
--- OUTSIDE RECORDS SUMMARY | 2025-08-14 21:42 | XMS_ITS | Encounter Summary ---
Author Organization [facility] Address [address] [place] [address] Care Team Providers Care Account Services Associate Name Role Phone Christopher Daniels MD Primary Care Provider [phone] Reason for Visit * Reason Onset Date Comments jury duty 07/18/2025 Encounter Details Date Type Department Care Team (Late st Contact Info) Description 07/18/2025 Telephone Internal Medicine - [facility] [address] [place] [phone] Christopher Daniels MD [address] [place] [phone] Social History Tobacco Use Types Packs/Day Years [...] on file documented as of this encounter Progress Notes * Cristian Call - 07/31/2025 10:49 AM EDT Patient called regarding jury duty letter. He has not received it yet. He is requesting it be faxedto: [phone], Attn: Office of Jury Commissioner. Also requesting a second copy be mailed to his home Date to appear: November 02, 2025 * Namrata Black MA - 07/18/2025 3:35 PM EDT Pt notified and requested to be mailed to him. Mailed on 07/18/25 * Christopher Daniels MD - 07/18/2025 12:26 PM EDT Letter completed. Please print. * Akiko Boswell MA - 07/18/2025 10:05 AM EDT Last seen 03/29/25, next appt 10/10/25. Letter pended. * Gladis Thompson - 07/18/2025 9:55 AM EDT Patient received a jury summons and would like a letter stating that he is unable to [facility] Badge number : [phone] Patient would like the letter mailed to him. Address was verified. Please call him when we mail theletter out [phone] documented in this encounter Plan of Treatment Upcoming Encounters Date Type Department Care Team (Late st Contact Info) Description 08/15/2025 9:15 AM EDT Hospital Encounter Ultrasound - [facility] [address] [place] [address] 08/29/2025 11:30 AM EDT Office Visit Nephrology - [facility] [address] [place] [address] Michael Plaza MD [address] [phone] 10/10/2025 11:30 AM EST Office Visit Internal Medicine - [facility] [address] [place] [address] Christopher Daniels MD [address] [place] [address] 11/30/2025 10:50 AM EST Office Visit [facility] - [facility] [address] [facility] [address] [place] [address] Sara Mcdonald MD [address] [place] [phone] 08/10/2026 11:20 AM EDT Office Visit Gastroenterology - [place] [address] [place] [phone] Valarie Dennis NP [address] [address] documented as of this encounter Visit Diagnoses Not on filedocumented in this encounter Care Teams Account Services Associate Relationship Specialty Start Date End Date Christopher Daniels MD [address] [place] [phone] PCP - General Internal Medicine 02/12/22 documented as of this encounter
--- OUTSIDE RECORDS SUMMARY | 2025-08-14 21:42 | XMS_ITS | Data Portability ---
Author Organization [facility] [employer] Address [address] [place] [address] Thu [place] [address] Care Team Providers Care Women'S Studies Lecturer Name Role Phone NADIA RASMUSSEN Primary Care Provider SHIRIN GAMEZ Referring Provider Unavailable SHIRIN GAMEZ Primary Care Provider [phone] Assessment Encounter Date Assessment Date Assessment LastModified by Organization Details LastModified Time 12/18/2021 12/18/2021 IMPRESSION: Chronic right greater than left myofascial syndrome, prominently including right piriformis. Neurological exam reveals abnormal gait exam likely reactive to pain and is otherwise unrevealing. Muscular exam, focusing in the left gluteal region, reveals trigger points in piriformis and associated muscles of myotactic unit, with referral both down the left thigh to the left posterolateral calf and to the groin, recreating his presenting symptomatology. With referral to groin, this is sometimes called the crossed syndrome and may also involves quadratus lumborum I suggested trigger point injections and described them. He would like to move forward. He already knows stretches for this region. I will therefore not prescribe more physical therapy in association with the trigger point injections. I will reinforce the right type of stretches after each set of injections Medications reviewed, per patient, aspirin 81 mg/day, atorvastatin 40 mg daily, losartan, metoprolol, amitriptyline 50 mg/day, methocarbamol 750 mg 3 times a day as needed, omeprazole 20 mg daily PLAN Orion Haas December 18, 2021 10 sets of trigger point injection sessions for right side predominant piriformis muscle predominant myofascial syndrome causing right side predominant parasacral pain with referral down right more than left lower extremity and to groin. [email or web address] Not available 12/18/2021 12:21:29 Plan of Treatment Reminders Order Date Submit Date Provider Last Modified By Organization Details Last Modified Time Details Appointments None record ed. Lab None record ed. Referral None record ed. Procedures None record ed. Surgeries None record ed. Imaging None record ed. Medication Orders None record ed. Patient TargetsNo targets recorded. Patient InstructionsNo instructions recorded. Reason for Referral None Reported. Medical Equipment None Reported. Allergies Allergen ID Allergen Name Allergen Category Reaction Reaction Severity Criticality Documentation Date Start Date Code Code System Note Provider Name and Address Organization Details Recorded Time 1113 morphine medicatio n Not available Not available Not available 12/18/2021 7052 [facility] 2 11:18:32 Medications Name Sig Start Date Stop Date Status Note LastModified by Organization Details LastModified Time atorvastatin 40 mg tablet active Not Available Not Available Not Available prednisone 20 mg tablet TAKE 2 TABLETS BY MOUTH DAILY WITH FOOD FOR 5 DAYS active Not Available Not Available N ot Available amitriptylin e 50 mg tablet TAKE 1 TABLET BY MOUTH AT BEDTIME active Not Available Not Available No t Available amitriptylin e 25 mg tablet TAKE 1 TABLET BY MOUTH AT BEDTIME active Not Available Not Available No t Available methocarbamo l 750 mg tablet TAKE 1 TABLET BY MOUTH THREE TIMES DAILY NEEDED MUSCLE SPASM active Not Available Not Available No t Available amitriptylin e 10 mg tablet TAKE 1 TABLET BY MOUTH AT BEDTIME active Not Available Not Available No t Available baclofen 10 mg tablet TAKE 1 TABLET BY MOUTH THREE TIMES DAILY NEEDED FOR MUSCLE SPASM. MAY CAUSE SEDATION active Not Available Not Available No t Available losartan 25 mg tablet active Not Available Not Available No t Available gabapentin 300 mg capsule TAKE 1 CAPSULE BY MOUTH TWICE DAILY active Not Available Not Available No t Available omeprazole 20 mg capsule,rusty yed release active Not Available Not Available Not Available polyethylene glycol 3350 17 gram/dose oral powder TAKE 17G BY MOUTH EVERY DAY NEEDED FOR CONSTIPATIO N active Not Available Not Available No t Available metoprolol tartrate 25 mg tablet active Not Available Not Available No t Available peg 3350-electro lytes 236 gram-22.74 gram-6.74 gram-5.86 gram solution active Not Available Not Available Not Available Durezol 0.05 % eye drops INSTILL 1 DROP IN BOTH EYES TWICE DAILY DIRECTED active Not Available Not Available Not Available Vitals Date Recorded Body height Body mass index (BMI) Body weight Respiratory rate Provider Name and Address Organization Details Last Updated DateTime 12/18/2021 172.72 cm 33.5 kg/m2 54141.32 g 12 /min Mila Gaitan [facility] 12/18/2021 11:18:24 Social History Question Answer Notes LastModified by Organ[employer] Details LastModified Time Tobacco Smoking Status Never Smoker [facility] 12/18/2021 11:20:43 What Is Your Level Of Caffeine Consumption? None Information not available 12/18/2021 What Is The Highest Grade Or Level Of School You Have Completed Or The Highest Degree You Have Received? [id number] [facility] Information not available 12/18/2021 Which Of Your Hands Is Dominant? Right Information not available 12/18/2021 What Is Your Relationship Status? Unknown Information not available 12/18/2021 Sex: Unknown Functional Status Question Answer Note LastModified by [employer] Details LastModified Time What is your level of alcohol consumption? Occasional Information not available 12/18/2021 Mental Status None recorded. Family History Relationship Description Onset Age of this Age Resolved Age Notes LastModified by Organization Details LastModified Time Mother Dementia [email or web address] Not avail able 12/18/2021 11:18:57 Mother Hypertensive disorder [email or web address] Not available 12/2021 11:19:17 Father Heart disease [email or web address] Not available 12/2021 11:19:07 Father Hypertensive disorder [email or web address] Not available 12/2021 11:19:26 Medical History Condition Response High Blood Pressure or Hypertension Y Osteoporosis Y High Cholesterol or Hyperlipidemia Y Past Encounters Encounter ID Performer Location Encounter Start Date Encounter Closed Date Diagnosis/Indication Diagnosis SNOMED-CT Code Diagnosis ICD10 Code Diagnosis IMO Codes Diagnosis Note [id number] Stevan Lozoya MD [facility] [address] [place] [address] [place] [phone] 12/18/2021 10:57:29 12/18/2021 17:07:45 [place] 61309685 G24.1 Health Concerns Section Related Observation LastModified by Organization Detai ls LastModified Time None Recorded Concern Status LastModified by Organization Details LastModified Time None Recorded Advance Directives Directive None Recorded Payers Insurance Date Sequence Insurance Name Policy Number Policy Pinto Covered Member ID Pinto Member ID Guarantor Name 12/18/2021 1 [facility] Orion Haas [id number] Orion Haas 12/18/2021 2 MEDICARE [place]: [facility] [employer] Orion Haas [id number] Orion Haas Notes Date Note Type Note Provider Name and Address Organization Details Recorded Time 12/18/2021 text/html He presents for initial neurology consultation for assessment and management of lower back pain with onset after 2000 work injury. Past history includes hypertension, cardiovascular disease status post stent placement, and arthritis all over except my knees; In 2000 he was doing physical work at a job involving twisting and lifting 50 pound containers, as well as maneuvering much heavier objects. He was maneuvering a 1000 pound object when one of the wheels came off and he was transiently pinned. A day or so later he had onset of intense back pain. He was out of work for a while. The back pain has never gone away and he has since gone on permanent disability because of the back pain.In recent times, his back pain was at a plateau where he could handle it as long as he respected limits that he is well aware of: Back pain worsens if he sits too long in a particular position, stands too long in a particular position or walks for an extended time. In winter and early spring 2020, he was sitting with his father for 3 months and hospice. His father passed in February. The extended sitting seem to trigger his back pain (and his neck pain). Since then he has gone downhill. Not only does back pain emerge if he pursues activities past his limits but sometimes it emerges and he cannot pinpoint a trigger. He does not have pain 24/7, but when pain emerges, it stays for the rest of the day and he eventually has to lie down and is disabled from most activities subsequently that day. Some days are sufficiently bad so that he needs a cane or a walker. He has been on amitriptyline with a diagnosis of nerve pain. He finds it hard to say if it helps. (It helps him sleep, per chart.) He has seen Dr. Benavides, rheumatology, who has had no suggestions. He has appointment pending with another pull through hooker, Dr. Ortiz. He notes that with the stent in his heart, he has to avoid NSAIDs or steroids, medicines often used by rheumatology. He has had neurosurgery consultation. They told him that surgery was not likely to help his pain.Back pain is focused at his sacrum. Intermittently, it goes down the lateral side of his right leg, other times down the back of his right calf. The pain is less prominent on the left sacral region and only infrequently goes down the left leg, a little on the side. Pain also intermittently extends into his groin. Stevan Lozoya MD [address] [place] [address] [place], [phone], [facility] 12/18/2021 12:22:23
--- OUTSIDE RECORDS SUMMARY | 2025-08-14 21:42 | XMS_ITS | Clinical Summary ---
Author Organization [place] [address] [address] [facility] Building Address [address] [place], [place] [address], [place] [address] Phone Care Team Providers Care Terry Cloth Cutter Hand Name Role Phone Christopher Daniels MD Primary Care Provider [phone] Allergies Active Allergy Reactions Criticality Noted Date [...] mouth 1 (one) time each day. Active allopurinoL (ZYLOPRIM) 100 mg tablet TAKE [...] DAY 90 tablet 3 06/21/20 25 Active amoxicillin-cla vulanate (AUGMENTIN) 500-125 mg per tablet Take 1 tablet by mouth 2 (two) times a day. 08/01/20 25 Active dapagliflozin propanediol (FARXIGA) 10 mg tablet Take 1 tablet (10 mg total) by mouth 1 (one) time each day. 90 tablet 1 03/28/20 25 025 Discontinued Active Problems Problem Noted [...] complication, without long-term current use of insulin ([facility] V24, [facility] V28) 09/23/2024 Family history of prostate cancer [...] 03/08/2019 Overview (08/17/2024): Follows with pain management, [facility], Dr. Earl Ramsey Cervical disc herniation 03/03/2018 Coronary atherosclerosis 03/03/2018 Overview (08/17/2024): - Status post PCI to the mid LAD after presenting with an anteroseptal STEMI at [facility] in 2015; after the procedure, there [...] low carbohydrate diet. Also recommended for now inhn-ztx-xousowp fish oil supplements. Assessment & Plan (03/28/2025 [...] Encounters Date Type Department Care Team Description 08/10/2025 11:20 AM EDT Office Visit Gastroenterology - [place] [address] [place] [address] Valarie Dennis NP Family history of colon cancer in father (Primary Dx); Fatty liver; Obesity (BMI 30-39.9) 07/28/2025 Telephone [facility] Cardiology Associates [facility] [address] [place] [address] Sara Mcdonald MD 07/18/2025 Telephone Internal Medicine - [place] [address] [place], [place] [phone] Christopher Daniels MD 06/30/2025 10:00 AM EDT Ancillary Procedure [facility] Cardiology [facility] [address] [place] [address] Coronary artery disease, unspecified vessel or lesion type, unspecified whether angina present, unspecified whether koi or transplanted heart 06/08/2025 Telephone Internal Medicine - [place] [address] [place], [place] [phone] Christopher Daniels MD 06/01/2025 Telephone Internal Medicine - [place] [address] [place], [place] [phone] Christopher Daniels MD 06/01/2025 Telephone [facility] Cardiology [facility] [address] [place] [address] Adam Bravo NP 05/30/2025 2:30 PM EDT Ancillary Procedure [facility] [address] [facility] [address] [place] [address] Atherosclerosis of coronary artery, unspecified vessel or lesion type, unspecified whether angina present, unspecified whether koi or transplanted heart 05/26/2025 Telephone Internal Medicine - [place] [address] [place], [place] [phone] Christopher Daniels MD 05/16/2025 Telephone Pediatrics - [place] [address] [place], [place] [phone] Christopher Daniels MD from Last 3 Months Immunizations Immunization Administration Dates Next Due Hepatitis B (Itxlqbl-X-Bruam , Recombivax HB-Adult) 19yo and older 04/12/2025,10/25/2024,09/23/2024 [...] atherosclerosis 03/03/2018 DX:Zeinab nary atherosclerosis; COMMENT: Comments: NE 02/16/16 with angioplasty and stent x1. Hyperlipidemia [...] Mass Index 30.96 08/10/2025 11:12 AM EDT Plan of Treatment Upcoming Encounters Date Type Department Care Team (Late st Contact Info) Description 08/15/2025 9:15 AM EDT Hospital Encounter Ultrasound - [place] [address] [place], [place] [phone] 08/29/2025 11:30 AM EDT Office Visit Nephrology - [address] [phone] Michael Plaza MD [address] [facility] 204 [place] [phone] 10/10/2025 11:30 AM EST Office Visit Internal Medicine - [address] [phone] Christopher Daniels MD [address] [place], [place] 11/30/2025 10:50 AM EST Office Visit [facility] Cardiology Associates - [facility] [address] 300 [facility] 154 [place] [phone] Sara Mcdonald MD [address] [place] [address] 410 [place] [phone] 08/10/2026 11:20 AM EDT Office Visit Gastroenterology - [place] 175 [facility] 175 [facility] 200 [place] [phone] Valarie Dennis, DEVI 175 [facility] 200 [place] [address] Health Maintenance Due Date Last Done Comments [...] Procedure Name Priority Date/Time Associated Diagnosis Comments TRANSTHORACIC ECHOCARDIOGRAM (TTE) COMPLETE Routine 06/30/2025 10:44 AM EDT Coronary artery disease, unspecified vessel or lesion type, unspecified whether angina present, unspecified whether koi or transplanted heart STRESS ECHOCARDIOGRAM EXERCISE WITH CONTRAST Routine 05/30/2025 3:33 PM EDT Atherosclerosis of coronary artery, unspecified vessel or lesion type, unspecified whether angina present, unspecified whether koi or transplanted heart COMPREHENSIVE METABOLIC PANEL Routine 04/12/2025 11:36 AM EDT Coronary atherosclerosis of koi coronary artery LIPID PANEL WITH REFLEX TO DIRECT LDL Routine 04/12/2025 11:36 AM EDT Coronary atherosclerosis of koi coronary artery MICROALBUMIN CREATININE URINE RATIO Routine 03/29/2025 1:35 PM EDT Type 2 diabetes mellitus without complication, without long-term current use of insulin ([facility] V24, [facility] V28) HEMOGLOBIN A1C Routine 03/29/2025 1:35 PM EDT Type 2 diabetes mellitus without complication, without long-term current use of insulin ([facility] V24, [facility] V28) HIV 1, 2 ANTIBODY, P24 ANTIGEN WITH REFLEX TO DIFFERENTIATION Routine 09/23/2024 2:46 PM EST Screen for STD (sexually transmitted disease) HM HEPATITIS C SCREENING Routine 09/02/2022 HM COLONOSCOPY Routine 09/18/2021 from Last 3 Months or Most Recently Relevant to Health Maintenance Results * TRANSTHORACIC ECHOCARDIOGRAM (TTE) COMPLETE (06/30/2025 10:44 AM EDT) IVSD 0.7 0.6 - 1.0 cm CV PACS LVIDD 5.7 4.2 - 5.8 cm CV PACS LVIDS 3.6 2.5 - 4.0 cm CV PACS LVOT Diameter 2.2 cm CV PACS LVPWD 0.9 0.6 - 1.0 cm CV PACS MV E' Tissue Velocity Lateral 9 cm/s CV PACS MV E' Tissue Velocity Septal 7 cm/s CV PACS GLS -19.7 % CV PACS GLS -20.6 % CV PACS GLS -18.3 % CV PACS GLS -19.5 % CV PACS LVOT Area 3.8 cm2 CV PACS Left Atrium Minor [place] 5.7 cm CV PACS Left Atrium Major [place] 5.5 cm CV PACS LA Area Sys (A2C) 20 cm2 CV PACS LA Area Sys (A4C) 19 cm2 CV PACS LA Volume (BP) 53 mL CV PACS RA Area 19.3 cm2 CV PACS RA 2D Volume 56 mL CV PACS Aortic Sinus Valsalva 3.7 cm CV PACS Ascending Aorta 3.4 cm CV PACS MV Deceleration [place] 3.3 m/s2 CV PACS E Wave Deceleration Time 167 119 - 242 ms CV PACS MV PHT 49 ms CV PACS MV Peak A Alberto 0.70 m/s CV PACS MV Peak E Alberto 0.56 m/s CV PACS MV Area PHT 4.5 cm2 CV PACS RV Diastolic Basal Dimension 3.8 2.5 - 4.1 cm CV PACS RV S' 8 cm/s CV PACS TAPSE 22 mm CV PACS E/E' Ratio Septal 8 CV PACS E/E' Ratio Averaged 7 CV PACS Relative Wall Thickness ratio 0.32 CV PACS FS 37 % CV PACS LV Mass 2D 170 g CV PACS E/A Ratio 0.8 CV PACS E/E' Ratio Lateral 6 CV PACS BSA 2.12 m2 CV PACS LA Volume Index (BP) 26 mL/m2 CV PACS LVIDD Index 2.75 cm/m2 CV PACS LVIDS Index 1.74 cm/m2 CV PACS LV Mass Index 2D 82 50 - 102 g/m2 CV PACS RA 2D Volume Index 27 18 - 32 mL/m2 CV PACS Ascending Aorta Index 1.64 cm/m2 CV PACS Est. RA Pressure 3 mmHg CV PACS Anatomical Region Laterality Modality Ultrasound Narrative 07/14/2025 10:17 AM EDT Normal biventricular size and systolic function. Normal left ventricular regional wall motion with an ejection fraction of 55 to 60%. Normal left ventricular diastolic function. No hemodynamically significant valve disease. Left Ventricle Left ventricle cavity size is normal. Wall thickness is normal. Systolic function is normal with an ejection fraction of 55-60%. There are no regional LV wall motion abnormalities. There is no diastolic dysfunction and normal left atrial pressure. Right Ventricle Right ventricle cavity appears normal. Systolic function is normal. Left Atrium Left atrium cavity size is normal. Right Atrium Right atrium cavity is normal. IVC/SVC Inferior vena cava structure is normal. Mitral Valve Mitral valve structure is normal. There is trace regurgitation. There is no evidence of mitral valve stenosis. Tricuspid Valve The leaflets exhibit normal excursion. There is no regurgitation or stenosis. Cannot assess RVSP. Aortic Valve The aortic valve is trileaflet. There is no regurgitation or stenosis. Pulmonic Valve Visualized portions of the pulmonic valve appear normal. There is no regurgitation or stenosis. Ascending Aorta The aorta appears normal in size. Pericardium Pericardium appears normal. There is no pericardial effusion. Study Details Overall the study quality was adequate. Additional technique includes myocardial strain. us Adam Bravo NP CV ECHO PROCEDURES Final Result * STRESS ECHOCARDIOGRAM EXERCISE WITH CONTRAST (05/30/2025 [...] NP CV ECHO PROCEDURES Final Result * Lipid panel with reflex to direct LDL (04/12/2025 11:36 AM EDT) Cholesterol 110 0 - 200 mg/dL LAB CHEMISTRY METHOD 04/12/2025 6:11 PM [facility] Triglycerides 100 0 - 150 mg/dL LAB CHEMISTRY METHOD 04/12/2025 6:11 PM [facility] HDL 42 >=40 mg/dL LAB CHEMISTRY METHOD 04/12/2025 6:11 PM [facility] LDL Calculated 48 0 - 100 mg/dL LAB CHEMISTRY METHOD 04/12/2025 6:11 PM [facility] VLDL Cholesterol Lee 20 mg/dL LAB CHEMISTRY METHOD 04/12/2025 6:11 PM [facility] Non HDL Chol. (LDL+VLDL) 68 <145 mg/dL LAB CHEMISTRY METHOD 04/12/2025 6:11 PM [facility] Chol/HDL Ratio 2.6 0.0 - 4.4 LAB CHEMISTRY METHOD 04/12/2025 6:11 PM [facility] Blood Venous blood specimen / Unknown Venipuncture / Unknown 04/12/2025 11:36 AM EDT 04/12/2025 11:36 AM EDT us Adam Shelly CASUAL SHOE INSPECTOR LAB BLOOD ORDERABLES Final Resul t [facility] [address] [place] [address], * (ABNORMAL) Comprehensive metabolic panel (04/12/2025 11:36 AM EDT) Sodium 138 133 - 145 mmol/L LAB CHEMISTRY METHOD 04/12/2025 6:11 PM EDT [facility] Potassium 4.6 3.5 - 5.5 mmol/L LAB CHEMISTRY METHOD 04/12/2025 6:11 PM [facility] Chloride 105 96 - 110 mmol/L LAB CHEMISTRY METHOD 04/12/2025 6:11 PM [facility] CO2 28 21 - 32 mmol/L LAB CHEMISTRY METHOD 04/12/2025 6:11 PM [facility] Anion Gap 5 3 - 11 LAB CHEMISTRY METHOD 04/12/2025 6:11 PM [facility] Glucose 101(H) 70 - 100 mg/dL LAB CHEMISTRY METHOD 04/12/2025 6:11 PM [facility] BUN 14 5 - 25 mg/dL LAB CHEMISTRY METHOD 04/12/2025 6:11 PM [facility] Creatinine 1.40(H) 0.70 - 1.30 mg/dL LAB CHEMISTRY METHOD 04/12/2025 6:11 [facility] eGFR 58(L) >=60 mL/min/1. 73m2 LAB CHEMISTRY METHOD 04/12/2025 6:11 PM [facility] Comment:Calculation based on the Chronic Kidney Disease Epidemiology Collaboration (CKD-EPI) equation refit without adjustment for race. BUN/Creatinine Ratio 10.0 LAB CHEMISTRY METHOD 04/12/2025 6:11 PM [facility] Calcium 8.8 8.5 - 10.5 mg/dL LAB CHEMISTRY METHOD 04/12/2025 6:11 PM EDT [facility] AST (SGOT) 26 10 - 42 unit/L LAB CHEMISTRY METHOD 04/12/2025 6:11 PM EDT [facility] ALT (SGPT) 28 10 - 60 unit/L LAB CHEMISTRY METHOD 04/12/2025 6:11 PM [facility] Alkaline Phosphatase 51 42 - 121 unit/L LAB CHEMISTRY METHOD 04/12/2025 6:11 PM EDT [facility] Total Protein 7.3 6.0 - 8.0 g/dL LAB CHEMISTRY METHOD 04/12/2025 6:11 PM [facility] Albumin 4.1 3.2 - 5.0 g/dL LAB CHEMISTRY METHOD 04/12/2025 6:11 PM [facility] Total Bilirubin 0.9 0.0 - 1.4 mg/dL LAB CHEMISTRY METHOD 04/12/2025 6:11 PM T [facility] Blood Venous blood specimen / Unknown Venipuncture / Unknown 04/12/2025 11:36 AM EDT 04/12/2025 11:36 AM EDT Adam Bravo NP LAB BLOOD ORDERABLES Final Resul t [facility] [address] [place] [address], * Microalbumin creatinine urine ratio (03/29/2025 1:35 PM EDT) Creatinine, Urine 178.0 mg/dL LAB CHEMISTRY METHOD 03/29/2025 5:45 PM T [facility] Microalb, Ur 14.3 0.0 - 29.0 mg/L LAB CHEMISTRY METHOD 03/29/2025 5:45 PM [facility] Microalb/Creat Ratio 8 <30 mg/g creat LAB CHEMISTRY METHOD 03/29/2025 5:45 PM EDT [facility] Urine Urine specimen obtained by clean catch procedure / Unknown Non-blood Collection / Unknown 03/29/2025 1:35 PM EDT 03/29/2025 1:35 PM EDT us Christopher Daniels MD LAB URINE ORDERABLES Final Resu lt Performing Organization Address [facility]/ZIP Co de Phone Number [facility] [address] [place] [address], [place] [phone] * Hemoglobin A1c (03/29/2025 1:35 PM EDT) Hemoglobin A1C 6.2 <6.5 % LAB CHEMISTRY METHOD 03/29/2025 8:32 PM EDT [facility] Mean Bld Glu Estim. 131 mg/dL LAB CHEMISTRY METHOD 03/29/2025 8:32 PM EDT [facility] Blood Venous blood specimen / Unknown Venipuncture / Unknown 03/29/2025 1:35 PM EDT 03/29/2025 1:35 PM EDT Christopher Daniels MD LAB BLOOD ORDERABLES Final Resu lt Performing Organization Address [facility] Co de Phone Number [facility] [address] [place] [address], [place] [phone] * HIV 1,2 antibody, p24 antigen with reflex to differentiation (09/23/2024 2:46 PM EST) HIV Combo AB/AG Negative Negative LAB CHEMISTRY METHOD 09/23/2024 7:29 PM EST [facility] Blood Venous blood specimen / Unknown Venipuncture / Unknown 09/23/2024 2:46 PM EST 09/23/2024 2:46 PM EST Narrative [facility] - 09/23/2024 7:29 PM EST This assay is a 4th generation assay allowing for earlier detection of HIV infection by detecting the presence of the HIV-1 p24 antigen as well as the traditional antibodies to HIV type 1 (including group O) and type 2. Use of a 4th generation assay is the current CDC recommendation for HIV screening. us Christopher Daniels MD LAB BLOOD ORDERABLES Final Resu lt [facility] [address] [place] [address], * Hepatitis C Screening (09/02/2022) Pathologist [facility] Hepatitis C Screening abstracted Historical Provider HEALTH MAINTENANCE Final Result * Colonoscopy (09/18/2021) [facility] Colonoscopy no interpretation , abstracted Anatomical Region Laterality Modality Other Scott Provider HEALTH MAINTENANCE Final Result from Last 3 Months or Most Recently Relevant to Health Maintenance Insurance [employer] MED[employer]ARE ADVANTAGE Care Teams Terry Cloth Cutter Hand Relationship Specialty Start Date End Date Christopher Daniels MD [facility] [place] [address] PCP - General Internal Medicine 02/12/22
== END ==
LOC: HO.SL 19:30
PROVIDERS: Visit Provider Internal Medicine
DX: G47.33 Obstructive sleep apnea (adult) (pediatric) (principal); F41.9 Anxiety disorder, unspecified
CPT/HCPCS: 95811

== ENCOUNTER → 2025-08-14 19:30 | Outpatient (BNV) | payer MEDICARE, SELFPAY | PROVIDERS: Visit Provider Internal Medicine | DX: G47.33 Obstructive sleep apnea (adult) (pediatric) (principal) | CPT/HCPCS: 95811 ==

== ENCOUNTER 2025-09-08 14:07 | Outpatient (REF) | payer MEDICARE, SELFPAY ==
--- NOTE | 2025-09-08 14:13 | PFT_ITS ---
Indication: Dyspnea Spirometry FEV1 to FVC 77%; FEV1 3.67 L; FVC 4.77 L. No significant response to bronchodilators noted. Lung Volumes Total lung capacity 114% predicted; residual volume 142% predicted Diffusion Capacity DLCO 100% predicted Comparison None Interpretation No obstructive nor restrictive ventilatory defects identified. No significant response to bronchodilators noted. Her appears to be a trend of hyperinflation and significant air trapping which could be secondary to small airways disease. Diffusing capacity is within normal limits. If asthma is in the differential methacholine challenge may be helpful in assessing for hyperreactive airways. Clinical correlation warranted. MTDD
[2025-09-08 14:46] VITALS: PULSE 51
--- OUTSIDE RECORDS SUMMARY | 2025-09-08 16:10 | XMS_ITS | Data Portability ---
Author Organization [facility] [employer] Address [address] [place] [address] Thu [place] [address] Care Team Providers Care Hearing Instrument Specialist Name Role Phone NADIA RASMUSSEN Primary Care Provider SHIRIN GAMEZ Referring Provider Unavailable SHIRIN GAMEZ Primary Care Provider Assessment Encounter Date Assessment Date Assessment [...] available Not available 12/18/2021 [id number] [facility] Neurology [facility] 2 11:18:32 Medications Name Sig Start Date [...] Updated DateTime 12/18/2021 172.72 cm 33.5 kg/m2 57587.32 g 12 /min Mila Gaitan [facility] 12/18/2021 11:18:24 Social History Question Answer Notes LastModified by Organizat [employer] Details LastModified Time Tobacco Smoking Status Never Smoker [facility] 12/18/2021 11:20:43 What Is Your Level Of Caffeine Consumption? None Information not available 12/18/2021 What Is The Highest Grade Or Level Of School You Have Completed Or The Highest Degree You Have Received? [id number] [facility] Information not available 12/18/2021 Which Of Your Hands Is Dominant? Right Information not available 12/18/2021 What Is Your Relationship Status? Unknown Information not available 12/18/2021 Sex: Unknown Functional Status Question Answer Note LastModified by Organ[employer] Details LastModified Time What is your level [...] Response High Blood Pressure or Hypertension Y High Cholesterol or Hyperlipidemia Y Osteoporosis Y Past Encounters Encounter ID Performer Location Encounter Start Date Encounter Closed Date Diagnosis/Indication Diagnosis SNOMED-CT Code Diagnosis ICD10 Code Diagnosis IMO Codes Diagnosis Note [id number] Stevan Lozoya MD [facility] [address] [place] [address] [place] [phone] 12/18/2021 10:57:29 12/18/2021 17:07:45 Dystonia 35757302 G24.1 Health Concerns Section Related Observation LastModified by Organization Detai ls LastModified Time None Recorded Concern Status LastModified by Organization Details LastModified Time None Recorded Advance Directives Directive None Recorded Payers Insurance Date Sequence Insurance Name Policy Number Policy Pinto Covered Member ID Pinto Member ID Guarantor Name 12/18/2021 1 [facility] Orion Haas [id number] 1 Orion Haas 12/18/2021 2 MEDICARE B-[place]: [facility] [employer] Orion Haas [id number] Orion Haas Notes Date Note Type [...] suggestions. He has appointment pending with another tariff inspector, Dr. Ortiz. He notes that with the [...] extends into his groin. Stevan Lozoya MD [address] [place] [address] [place], [phone], [facility] Neurology [facility] 12/18/2021 12:22:23
--- OUTSIDE RECORDS SUMMARY | 2025-09-08 16:10 | XMS_ITS | Encounter Summary ---
Author Organization [facility] Address [address] [place] [address] Care Team Providers Care Grader Meat Name Role Phone Christopher Daniels MD Primary Care Provider Reason for Visit * Reason Onset Date Comments Jury Duty 09/01/2025 Encounter Details Date Type Department Care Team (Late st Contact Info) Description 09/01/2025 Telephone Internal Medicine - [place] [address] [place] [address] Christopher Daniels MD [address] [place] [id number] Social History Tobacco Use Types Packs/Day Years [...] as of this encounter Progress Notes * Marisol Lai MA - 09/04/2025 4:58 PM EDT Pt notified and letter faxed to Jury Duty office and original mailed to pt as requested per patient. * Christopher Daniels MD - 09/04/2025 10:45 AM EDT Letter completed. Please inform the patient. * Cora Lopez MA - 09/04/2025 9:33 AM EDT Denial received and reviewed. New letter pending with specifics. Please sign if appropriate. * Cristian Call - 09/01/2025 4:33 PM EDT Patient dropped off denial form from Jury Duty * Cora Lopez MA - 09/01/2025 11:19 AM EDT Await denial form. Standard jury duty letter done 07/18/25. * Melissa Nichols - 09/01/2025 11:10 AM EDT From encounter 07/18/2025. Pt is calling regarding his Jury Duty letter. Pt says it was denied due to insufficient details regarding his conditions. Pt is asking to note he can't sit for long periods of time. PT is dropping off denial form today. documented in this encounter Plan of Treatment Upcoming Encounters Date Type Department Care Team (Late st Contact Info) Description 10/10/2025 11:30 AM EST Office Visit Internal Medicine - [facility] 305 [facility] [address] Christopher Daniels MD [address] [place] [address] 11/30/2025 10:50 AM EST Office Visit [facility] - [facility] [address] [facility] 154 [place] [address] Sara Mcdonald MD [address] [place] [address] 08/10/2026 11:20 AM EDT Office Visit Gastroenterology - [address] [facility] [address] [place] [address] Valarie Dennis, DEVI 175 [facility] 200 [place] [address] 08/28/2026 11:30 AM EDT Office Visit Nephrology - [place] [address] [place] [address] Michael Plaza MD 3550 [facility] 204 [place] [address] documented as of this encounter Visit Diagnoses Not on filedocumented in this encounter Care Teams Grader Meat Relationship Specialty Start Date End Date Christopher Daniels MD [address] [facility] [place] [address] PCP - General Internal Medicine 02/12/22 documented as of this encounter
--- OUTSIDE RECORDS SUMMARY | 2025-09-08 16:10 | XMS_ITS | Encounter Summary ---
Author Organization [facility] Address [address] [place] [address] Care Team Providers Care Chief Scientist Name Role Phone Christopher Daniels MD Primary Care Provider [phone] Encounter Details Date Type Department Care Team (Late Contact Info) Description 08/17/2025 Results Follow-Up Gastroenterology - [place] 175 [facility] 175 [facility] [address] [place] [phone] Valarie Dennis NP [address] [address] Social History Tobacco Use Types Packs/Day Years [...] on file documented as of this encounter Plan of Treatment Upcoming Encounters Date Type Department Care Team (Late Contact Info) Description 10/10/2025 11:30 AM EST Office Visit [facility] [address] [place] [address] Christopher Daniels MD 305 [place] [address] 11/30/2025 10:50 AM EST Office Visit [facility]iology Associates - [facility] [address] [facility] 154 [place] [phone] Sara Mcdonald MD 300 [place] [address] 08/10/2026 11:20 AM EDT Office Visit Gastroenterology - [address] [facility] [address] [place] [address] Valarie Dennis, DEVI 175 [facility] 200 [place] [address] 08/28/2026 11:30 AM EDT [facility] [address] [place] [address] Michael Plaza MD 3550 [facility] 204 [place] [phone] documented as of this encounter Visit Diagnoses Not on filedocumented in this encounter Care Teams Chief Scientist Relationship Specialty Start Date End Date Christopher Daniels MD [facility] [place] [address] PCP - General Internal Medicine 02/12/22 documented as of this encounter
--- OUTSIDE RECORDS SUMMARY | 2025-09-08 16:10 | XMS_ITS | Data Portability ---
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 I encouraged him to use it daily. His nasal endoscopy was benign with a slight septal deflection to the right. No sinusitis or nasal polyps. He will also see an application security specialist in March for the dry eye [...] By Organization Details Last Modified Time 07/28/2025 [id number] - Contact Dr. Snow's office promptly to [...] Organization Details Recorded Time Hypertensiv e disorder 64260813 Active 2017 NEDA MCCARTNEY MD [address] [place] [address], [place], [address], [facility] - [facility] [place] 5 20:42:08 Coronary atheroscler osis 960630703 Active 2017 NEDA MCCARTNEY MD [address] [place] [address], [place], [address], [facility] - [facility] [place] 5 20:42:08 Displacemen t of cervical interverteb ral disc 099811021 Active 2017 NEDA MCCARTNEY MD [address] [place] [address], [place], [address], [facility] - [facility] [place] 5 20:42:08 Hyperlipide magaly 31995407 Active 2017 NEDA MCCARTNEY MD [address] [place] [address], [place], [address], [facility] - [facility] [place] 5 20:42:08 Prolapsed lumbar interverteb ral disc 391743749 Active 2018 NEDA MCCARTNEY MD [address] [place] [address], [place], [address], [place] [facility] [place] 5 20:42:08 Chronic low back pain 448515950 Active 2020 NEDA MCCARTNEY MD [address] [address], [facility] [place], [address], [place] [facility] [place] 5 20:42:08 Chronic ankle pain 9957917521588 9 Active 2020 NEDA MCCARTNEY MD [address] [address], [place], [address], [place] [facility] [place] 5 20:42:08 Swelling of lower limb 040895832 Active 2021 NEDA MCCARTNEY MD [address] [address], [place], [address], [place] [facility] [place] 20:42:08 Snoring 27003639 Active 2022 NEDA MCCARTNEY MD [address] [address], [place], [address], [place] [facility] [place] 20:42:08 Cardiomegal y 3994337 Active 2022 NEDA MCCARTNEY MD [address] [address], [place], [address], [place] [facility] [place] 20:42:08 Gout 29020420 Active 2022 NEDA MCCARTNEY MD 100 [facility] E 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, [place], [address], [place] [facility] [place] 5 20:42:08 Burping 232783133 Active 2023 NEDA MCCARTNEY MD 100 [facility] E [facility], [place], [address], [place] [facility] [place] 5 20:42:08 Dysphagia 48613081 Active 2023 NEDA MCCARTNEY MD [facility] [place], [place], [address], [place] [facility] [place] 20:42:08 Polyp of colon 35600677 Active 2023 NEDA MCCARTNEY MD 100 [facility],[address], [place], [address], [place] [facility] [place] 20:42:08 Type 2 diabetes mellitus without complicatio n 948100854 Active 2023 NEDA MCCARTNEY MD 100 [facility],[address], [place], [address], [place] [facility] [place] [facility] 20:42:08 Family history of malignant neoplasm of prostate 680208535 Active 2023 NEDA MCCARTNEY MD 100 [facility], [address] [facility], [place], [address], [place] [facility] [place] [facility] 20:42:08 Mast cell activation syndrome 6631433582525 9100 Active 2024 NEDA MCCARTNEY MD [address] [facility] [place], [place], [address], [place] [facility] 14:12:54 Deviated nasal septum 819521365 Active 2024 NEDA MCCARTNEY MD 100 [facility], [address], [place], [address], [place] [facility] [place] 20:40:33 Dacryocysti tis of left lacrimal sac 3426573457529 00 Active 2024 NEDA MCCARTNEY MD [address] [facility] [place], [place], [address], [place] [facility] 13:57:30 Problem Notes None recorded. Procedures Surgical History Date Name Laterality Status Provider Name and Address Organization Details Recorded Time 09/12/202 5 NasalEndoscop y_DP completed NEDA MCCARTNEY MD 100 [facility],[address] [address], [place], [address], [facility] 07/28/2025 13:58:06 5 NasalEndoscop y_DP completed NEDA MCCARTNEY MD 100 [facility],[address] [address], [place], [address], [facility] - [facility] 01/25/2025 14:12:48 Cataract Surgery completed Anitha Rivera [facility] 01/25/2025 13:53:26 Imaging Results None recorded. Procedure Notes None recorded. Medical Equipment None Reported. Allergies Allergen ID Allergen Name Allergen Category Reaction Reaction Severity Criticality Documentation Date Start Date Code Code System Note Provider Name and Address Organization Details Recorded Time 086874 lisinopri l medicatio n Not available Not available Not available 01/25/20252020 73868 RxNorm NEDA MCCARTNEY MD 100 [facility],[place] [address], [place], [address], [facility] 20:42:28 749665 morphine medicatio n Not available Not available Not available 01/25/20252017 7052 RxNorm Other react ions and sever ities : 'Naus ea And Vomit ing'. NEDA MCCARTNEY MD 100 [facility],[address] [place] [address], [place], [address], [facility] - [facility] 20:42:28 117743 bee pollen environme nt,medica tion Not available Not available Not available 07/27/20252023 66196 7 RxNorm NEDA MCCARTNEY MD [address] [facility],[place] [place] [address], [place], [address], [facility] 5 20:42:27 Medications Name Sig Start Date [...] Updated DateTime 07/28/2025 175.26 cm 29.5 kg/m2 07581.47 g TOPHER MORGAN [place] - [facility] [place] [facility] 07/28/2025 13:39:01 Social History None recorded. Functional Status None recorded. Mental Status None recorded. Family History Nothing Reported. Medical History Condition Response Diabetes Y Anxiety Y High Cholesterol Y GERD/Reflux Y Heart Attack ([place]) Y Migraines Y Hypertension Y Immunizations Vaccine Type Date Status Note Provider Nam e and Address Organization Details Recorded Time Influenza, split virus, quadrivalent, preservative 4 completed NEDA MCCARTNEY MD [address] [facility] [place] [address] [place] [address], [address], [place] - [facility] 07/27/2025 20:42:15 Influenza, MDCK, quadrivalent, PF 0 completed NEDA MCCARTNEY MD [address] [place], [place] [address]on [place],[address], [address], [place] [facility] 07/27/2025 20:42:15 Influenza, MDCK, quadrivalent, PF 2 completed NEDA MCCARTNEY MD [address] [place], [place] [address]on [place],[address], [address], [place] [facility] 07/27/2025 20:42:15 zoster recombinant 3 completed NEDA MCCARTNEY MD [address] [place], [place] [address]on [place],[address], [address], [place] [facility] 07/27/2025 20:42:15 zoster recombinant 2 completed ENDA MCCARTNEY MD [address] [place], [place] [address]on [place],[address], [address], [place] [facility] 07/27/2025 20:42:15 COVID-19, mRNA, LNP-S, PF, 100 mcg/0.5mL dose or 50 mcg/0.25mL dose 1 completed NEDA MCCARTNEY MD [address] [place], [place] [address]on [place] [address] [place] [address], [address], [place] [facility] 07/27/2025 20:42:15 COVID-19, mRNA, LNP-S, PF, 100 mcg/0.5mL dose or 50 mcg/0.25mL dose 1 completed NEDA MCCARTNEY MD [address] [place] [address] [place] [address], [address], [place] [facility] 07/27/2025 20:42:15 COVID-19, mRNA, LNP-S, PF, 100 mcg/0.5mL dose or 50 mcg/0.25mL dose 2 completed NEDA MCCARTNEY MD [address] [facility] [place] [address] [place] [address], [address], [place] [facility] 07/27/2025 20:42:15 COVID-19, mRNA, LNP-S, PF, 100 mcg/0.5mL dose or 50 mcg/0.25mL dose 1 completed NEDA MCCARTNEY MD [address] [facility] [place] [address] [place] [address], [address], [place] [facility] 07/27/2025 20:42:15 COVID-19, mRNA, LNP-S, PF, 30 mcg/0.3 mL dose 1 completed NEDA MCCARTNEY MD 100 [facility],[address], [address], [place] [facility] [place] 07/27/2025 20:42:15 Pneumococcal conjugate PCV20, polysaccharide GSH992 conjugate, adjuvant, PF 3 completed NEDA MCCARTNEY MD [address] [facility] [place],[address], [address], [place] [facility] [place] [facility] 07/27/2025 20:42:15 COVID-19, mRNA, LNP-S, PF, 30 mcg/0.3 mL dose, lani-sucrose 2 completed NEDA MCCARTNEY MD [address] [facility] [place] [address] [place] [address], [address], [place] [facility] [place] [facility] 07/27/2025 20:42:15 pneumococcal polysaccharide PPV23 8 completed NEDA MCCARTNEY MD [address] [facility] [place] [address] [place] [address], [address], [place] [facility] 07/27/2025 20:42:15 Tdap 9 completed NEDA MCCARTNEY MD [address] [facility] [place] [address] [place] [address], [address], [place] [facility] 07/27/2025 20:42:15 Tdap 0 completed NEDA MCCARTNEY MD [address] [facility] [place] [address] [place] [address], [address], [place] [facility] 07/27/2025 20:42:15 Tdap 4 completed NEDA MCCARTNEY MD [address] [facility] [place] [address] [place] [address], [address], [place] [facility] 07/27/2025 20:42:15 Influenza, split virus, trivalent, preservative 7 completed NEDA MCCARTNEY MD 100 [facility],[place] [address] [place] [address], [address], [place] [facility] 07/27/2025 20:42:15 Influenza, split virus, trivalent, preservative 0 completed NEDA MCCARTNEY MD 100 [facility],[place] [address] [place] [address], [address], [place] [facility] 07/27/2025 20:42:15 Influenza, split virus, trivalent, preservative 1 completed NEDA MCCARTNEY MD 100 [facility],[address], [address], [place] [facility] 07/27/2025 20:42:15 Influenza, split virus, trivalent, PF 5 completed NEDA MCCARTNEY MD [address] [facility] [place] [address] [place] [address], [address], [place] [facility] 07/27/2025 20:42:15 Influenza, split virus, trivalent, PF 4 completed NEDA MCCARTNEY MD 100 [facility],[place] [address] [place] [address], [address], [place] [facility] 07/27/2025 20:42:15 influenza, whole 2 completed NEDA MCCARTNEY MD [address] [place] [address], [address], [place] [facility] 07/27/2025 20:42:15 Hep B, adult 4 completed NEDA MCCARTNEY MD [address] [place] [address], [address], [place] [facility] 07/27/2025 20:42:15 Hep B, adult 4 completed NEDA MCCARTNEY MD [address] [place] [address], [address], [place] [facility] 07/27/2025 20:42:15 Influenza, split virus, quadrivalent, PF 6 completed NEDA MCCARTNEY MD [address] [place] [address], [address], [place] [facility] 07/27/2025 20:42:15 Influenza, split virus, quadrivalent, PF 3 completed NEDA MCCARTNEY MD [address] [place] [address], [address], [place] [facility] 07/27/2025 20:42:15 Influenza, split virus, quadrivalent, PF 1 completed NEDA MCCARTNEY MD [address] [place] [address], [address], [place] [facility] 07/27/2025 20:42:15 Past Encounters Encounter ID Performer Location Encounter Start Date Encounter Closed Date Diagnosis/Indication Diagnosis SNOMED-CT Code Diagnosis ICD10 Code Diagnosis IMO Codes Diagnosis Note [id number] NEDA MCCARTNEY MD [facility] [address] [address] 01/25/2025 13:16:21 01/25/2025 14:21:55 Mast cell activation syndrome [id number] 1563181 D89.40 [id number] NEDA MCCARTNEY MD [facility] [address] [address] 07/28/2025 13:21:26 07/28/2025 14:00:31 Mast cell activation syndrome 9982160052 9029905 D89.40 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 No sinusitis or nasal polyps. Dacryocyst itis of left lacrimal sac 7783224627 77457 H04.302 [id number] Health Concerns Section Related Observation LastModified by Organization Detai ls LastModified Time None Recorded Concern Status LastModified by Organization Details LastModified Time None Recorded Advance Directives Directive None Recorded Payers Insurance Date Sequence Insurance Name Policy Number Policy Pinto Covered Member ID Pinto Member ID Guarantor Name 07/25/2025 1 [employer] [id number] Orionmariano Haas [id number] Orion Haas Notes Date Note Type Note Provider Name and Address Organization Details Recorded Time 01/25/2025 text/html ROS as noted in the HPI allergies - itchy throattriggers cough, sneezewatery eyes 2000 exposed to industrial ammonia - lost sense of smell Dr Smith ([facility]), dx with MCAS (Mast cell activation syndrome)frequent lip swelling controlled with rx cetirizine QOD NEDA MCCARTNEY MD [address] [place] [address], [address] [place] [facility] 01/25/2025 14:20:50 07/28/2025 text/html allergies - itchy throat triggers cough, sneeze watery eyes 2000 exposed to industrial ammonia - lost sense of smell Dr Smith ([facility]), dx with MCAS (Mast cell activation syndrome) [...] during the gym incident. NEDA MCCARTNEY MD [address] [place] [address], [address], [facility] - [facility] 07/28/2025 14:00:08
--- OUTSIDE RECORDS SUMMARY | 2025-09-08 16:10 | XMS_ITS | Clinical Summary ---
Author Organization [place] [address] [facility] Building Address [address] [place], [place] [address], [place] [address] Phone Care Team Providers Care Law Examiner Name Role Phone Christopher Daniels MD Primary Care Provider [phone] Allergies Active Allergy Reactions Criticality Noted Date [...] of insulin ([facility] V24, [facility] V28) 09/23/2024 Family history of prostate cancer [...] 03/08/2019 Overview (08/17/2024): Follows with pain management, [facility], Dr. Earl Ramsey Cervical disc herniation 03/03/2018 Coronary atherosclerosis 03/03/2018 Overview (08/17/2024): - Status post PCI to the mid LAD after presenting with an anteroseptal STEMI at [facility] in 2015; after the procedure, there was [...] low carbohydrate diet. Also recommended for now [id number] fish oil supplements. Assessment & Plan (03/28/2025 [...] Encounters Date Type Department Care Team Description 09/01/2025 Telephone Internal Medicine - [facility] [address] [address] [facility] [place] [phone] Christopher Daniels MD 08/29/2025 11:30 AM EDT Office [facility] [place] [facility] [place] [address] Michael Plaza MD Stage 3 chronic kidney disease, unspecified whether stage 3a or 3b CKD (CMS/HCC V24, CMS/HCC V28) (Primary Dx); Essential hypertension 08/17/2025 Results Follow-Up Gastroenterology - [place] [address] [place] [address] Valarie Dennis NP 08/15/2025 9:01 AM EDT - 08/15/2025 11:59 PM EDT Hospital Encounter Ultrasound - [facility] [address] [place] [address] Fatty liver Discharge Disposition: Home or Self Care 08/10/2025 11:20 AM EDT Office Visit Gastroenterology - [place] [address] [place] [address] Valarie Dennis NP Family history of colon cancer in father (Primary Dx); Fatty liver; Obesity (BMI 30-39.9) 07/28/2025 Telephone [facility] - [address] [place] [phone] Sara Mcdonald MD 07/18/2025 Telephone Internal Medicine - [place] [address] [place], [place] [phone] Christopher Daniels MD 06/30/2025 10:00 AM EDT Ancillary Procedure [facility] [address] [place] [phone] Coronary artery disease, unspecified vessel or lesion type, unspecified whether angina present, unspecified whether absentee-shawnee or transplanted heart 06/08/2025 Telephone Internal Medicine - [place] [address] [place], [place] [phone] Christopher Daniels MD from Last 3 Months Immunizations Immunization Administration Dates Next Due Hepatitis B (Bjliknf-F-Tfhra , Recombivax HB-Adult) 19yo and older 04/12/2025,10/25/2024,09/23/2024 [...] and older (Afluria) 3 years and older 08/30/2025,08/30/2024,08/20/2015 Influenza trivalent, with pr eservative (Fluzone; Afluria) [...] Sign Reading Time Taken Comments Blood Pressure 100/60 08/29/2025 11:40 AM EDT Pulse 71 08/29/2025 11:40 AM EDT Temperature - - Respiratory Rate - - Oxygen Saturation 97% 08/10/2025 11:12 AM EDT Inhaled Oxygen Concentration - - Weight 91.6 kg (202 lb) 08/29/2025 11:40 AM EDT Height 172.7 cm (5' 8 ) 08/10/2025 11:12 AM EDT Body Mass Index 30.71 08/10/2025 11:12 AM EDT Plan of Treatment Upcoming Encounters Date Type Department Care Team (Late st Contact Info) Description 10/10/2025 11:30 AM EST Office Visit Internal Medicine - [place] [address] [place] [address] Christopher Daniels MD 305 [place] [address] 11/30/2025 10:50 AM EST Office Visit [facility] - [facility] [address] [facility] 154 [place] [phone] Sara Mcdonald MD 300 [place] [address] 08/10/2026 11:20 AM EDT Office Visit Gastroenterology - [address] [facility] 299 [facility] 419 [place] [address] Valarie Dennis, DEVI 175 [facility] 200 [place] [address] 08/28/2026 11:30 AM EDT Office Visit Nephrology - [facility] 305 [place] [address] Michael Plaza MD 35[address] [facility] 204 [place] [phone] Health Maintenance Due Date Last Done Comments Diabetes: Annual Foot Exam 1975 Diabetes: Annual Retina Eye Exam 1975 Hepatitis A Vaccines (1 of 2 - Risk 2-dose series) 1984 RSV Immunization Adult Patients (1 - Risk 50-74 years 1-dose series) 2015 Medicare Annual Wellness Visit 10/25/2022 Depression Screening 11/16/2024 Diabetes: Blood Sugar Control Test (HGBA1C) 09/29/2025 [...] Pneumococcal Vaccine: 50+ Years Completed 09/02/2023, 04/25/2008 HIV Screening Completed 09/23/2024 Hepatitis B Vaccines Completed 04/12/2025, 10/25/2024, 09/23/2024 COVID-19 Vaccine Completed 08/30/2025, , 08/21/2023, Additional history exists Influenza Vaccine Completed 08/30/2025, , 09/02/2023, Additional history exists HIB Vaccines Aged Out No longer eligi [...] Procedure Name Priority Date/Time Associated Diagnosis Comments US ABDOMEN LIMITED Routine 08/15/2025 11 :14 AM EDT Fatty liver TRANSTHORACIC ECHOCARDIOGRAM (TTE) COMPLETE Routine 06/30/2025 10:44 AM EDT Coronary artery disease, unspecified vessel or lesion type, unspecified whether angina present, unspecified whether absentee-shawnee or transplanted heart COMPREHENSIVE METABOLIC PANEL Routine 04/12/2025 11:36 AM EDT Coronary atherosclerosis of absentee-shawnee coronary artery LIPID PANEL WITH REFLEX TO DIRECT LDL Routine 04/12/2025 11:36 AM EDT Coronary atherosclerosis of absentee-shawnee coronary artery MICROALBUMIN CREATININE URINE RATIO Routine 03/29/2025 1:35 PM EDT Type 2 diabetes mellitus without complication, without long-term current use of insulin (CMS/HCC V24, CMS/HCC V28) HEMOGLOBIN A1C Routine 03/29/2025 1:35 PM EDT Type 2 diabetes mellitus without complication, without long-term current use of insulin (CMS/HCC V24, CMS/HCC V28) HIV 1, 2 ANTIBODY, P24 ANTIGEN WITH REFLEX TO DIFFERENTIATION Routine 09/23/2024 2:46 PM EST Screen for STD (sexually transmitted disease) HEPATITIS C SCREENING Routine 09/02/2022 COLONOSCOPY Routine 09/18/2021 from Last 3 Months or Most Recently Relevant to Health Maintenance Results * US Abdomen Limited (08/15/2025 11:14 AM EDT) Anatomical Region Laterality Modality Body Ultrasound 08/15/2025 11:3 2 AM EDT Impressions 08/15/2025 11:39 AM EDT Mildly limited exam. Mildly echogenic hepatic parenchyma which is commonly seen with steatosis and can also be present with chronic hepatocellular disease. -------- FINAL REPORT -------- Dictated By: Kirsten Shepard Dictated Date: 08/15/2025 11:32 ET Assigned Physician: Kirsten Shepard Reviewed and Electronically Signed By: Kirsten Shepard Signed Date: 08/15/2025 11:39 ET Workstation ID: [id number] Transcribed By: Self Edit Transcribed Date: 08/15/2025 11:32 ET Narrative 08/15/2025 11:39 AM EDT EXAM: Abdomen ultrasound, limited HISTORY: Hepatic steatosis. COMPARISON: 06/22/2024, 11/30/2023, and 04/16/2023 FINDINGS: Exam limited by patient body habitus. Liver: Normal in size measuring 16.8 cm in craniocaudad extent. Parenchyma is mildly echogenic. No mass detected. Gallbladder/Biliary Tree: Gallbladder lumen appears clear without wall thickening or pericholecystic fluid. No intra or extrahepatic biliary ductal dilatation. The common bile duct measures 0.5 cm. Pancreas: No abnormality in the visualized pancreas, the tail is obscured by bowel gas. Right kidney: Normal in size measuring 10.5 cm in craniocaudad extent. No hydronephrosis, focal lesions, or shadowing stones. Vasculature: Hepatopedal flow in the main portal vein. Procedure Note Kirsten Shepard MD - 08/15/2025 EXAM: Abdomen ultrasound, limited HISTORY: Hepatic steatosis. COMPARISON: 06/22/2024, 11/30/2023, and 04/16/2023 FINDINGS: Exam limited by patient body habitus. Liver: Normal in size measuring 16.8 cm in craniocaudad extent.Parenchyma is mildly echogenic. No mass detected. Gallbladder/Biliary Tree: Gallbladder lumen appears clear without wallthickening or pericholecystic fluid. No intra or extrahepatic biliaryductal dilatation. The common bile duct measures 0.5 cm. Pancreas: No abnormality in the visualized pancreas, the tail is obscuredby bowel gas. Right kidney: Normal in size measuring 10.5 cm in craniocaudad extent. Nohydronephrosis, focal lesions, or shadowing stones. Vasculature: Hepatopedal flow in the main portal vein. IMPRESSION: Mildly limited exam. Mildly echogenic hepatic parenchyma which is commonlyseen with steatosis and can also be present with chronic hepatocellulardisease. -------- FINAL REPORT -------- Dictated By: Kirsten Shepard Dictated Date: 08/15/2025 11:32 ET Assigned Physician: Kirsten Shepard Reviewed and Electronically Signed By: Kirsten Shepard Signed Date: 08/15/2025 11:39 ET Workstation ID: [id number] Transcribed By: Self Edit Transcribed Date: 08/15/2025 11:32 ET Valarie Dennis NP IMG US PROCEDURES Final Result * TRANSTHORACIC ECHOCARDIOGRAM (TTE) COMPLETE (06/30/2025 10:44 [...] 3.8 cm2 CV PACS Left Atrium Minor Hope 5.7 cm CV PACS Left Atrium Major Hope 5.5 cm CV PACS LA Area Sys (A2C) 20 cm2 CV PACS LA Area Sys (A4C) 19 cm2 CV PACS LA Volume (BP) 53 mL CV PACS RA Area 19.3 cm2 CV PACS RA 2D Volume 56 mL CV PACS Aortic Sinus Valsalva 3.7 cm CV PACS Ascending Aorta 3.4 cm CV PACS MV Deceleration Bradford 3.3 m/s2 CV PACS E Wave Deceleration [...] to direct LDL (04/12/2025 11:36 AM EDT) [facility] Cholesterol 110 0 - 200 mg/dL LAB CHEMISTRY METHOD 04/12/2025 6:11 PM EDT [facility] Triglycerides 100 0 - 150 mg/dL LAB CHEMISTRY METHOD 04/12/2025 6:11 PM EDT [facility] HDL 42 >=40 mg/dL LAB CHEMISTRY METHOD 04/12/2025 6:11 PM EDT [facility] LDL Calculated 48 0 - 100 mg/dL LAB CHEMISTRY METHOD 04/12/2025 6:11 PM EDT [facility] VLDL Cholesterol Lee 20 mg/dL LAB CHEMISTRY METHOD 04/12/2025 6:11 PM EDT [facility] Non HDL Chol. (LDL+VLDL) 68 <145 mg/dL LAB CHEMISTRY METHOD 04/12/2025 6:11 PM EDT [facility] Chol/HDL Ratio 2.6 0.0 - 4.4 LAB CHEMISTRY METHOD 04/12/2025 6:11 PM EDT [facility] Blood Venous blood specimen / Unknown Venipuncture / Unknown 04/12/2025 11:36 AM EDT 04/12/2025 11:36 AM EDT us Adam Bravo NP LAB BLOOD ORDERABLES Final Resul t [facility] [address] [place] [address], * (ABNORMAL) Comprehensive metabolic panel (04/12/2025 11:36 AM EDT) Sodium 138 133 - 145 mmol/L LAB CHEMISTRY METHOD 04/12/2025 6:11 PM EDT [facility] Potassium 4.6 3.5 - 5.5 mmol/L LAB CHEMISTRY METHOD 04/12/2025 6:11 PM EDT [facility] Chloride 105 96 - 110 mmol/L LAB CHEMISTRY METHOD 04/12/2025 6:11 PM EDT [facility] CO2 28 21 - 32 mmol/L LAB CHEMISTRY METHOD 04/12/2025 6:11 PM [facility] Anion Gap 5 3 - 11 LAB CHEMISTRY METHOD 04/12/2025 6:11 PM [facility] Glucose 101(H) 70 - 100 mg/dL LAB CHEMISTRY METHOD 04/12/2025 6:11 PM [facility] BUN 14 5 - 25 mg/dL LAB CHEMISTRY METHOD 04/12/2025 6:11 PM [facility] Creatinine 1.40(H) 0.70 - 1.30 mg/dL LAB CHEMISTRY METHOD 04/12/2025 6:11 PM [facility] eGFR 58(L) >=60 mL/min/1. 73m2 LAB CHEMISTRY METHOD 04/12/2025 6:11 PM [facility] Comment:Calculation based on the Chronic Kidney Disease Epidemiology Collaboration (CKD-EPI) equation refit without adjustment for race. BUN/Creatinine Ratio 10.0 LAB CHEMISTRY METHOD 04/12/2025 6:11 PM [facility] Calcium 8.8 8.5 - 10.5 mg/dL LAB CHEMISTRY METHOD 04/12/2025 6:11 PM [facility] AST (SGOT) 26 10 - 42 unit/L LAB CHEMISTRY METHOD 04/12/2025 6:11 PM [facility] ALT (SGPT) 28 10 - 60 unit/L LAB CHEMISTRY METHOD 04/12/2025 6:11 PM [facility] Alkaline Phosphatase 51 42 - 121 unit/L LAB CHEMISTRY METHOD 04/12/2025 6:11 PM [facility] Total Protein 7.3 6.0 - 8.0 g/dL LAB CHEMISTRY METHOD 04/12/2025 6:11 PM [facility] Albumin 4.1 3.2 - 5.0 g/dL LAB CHEMISTRY METHOD 04/12/2025 6:11 PM [facility] Total Bilirubin 0.9 0.0 - 1.4 mg/dL LAB CHEMISTRY METHOD 04/12/2025 6:11 PM EDT [facility] Blood Venous blood specimen / Unknown Venipuncture / Unknown 04/12/2025 11:36 AM EDT 04/12/2025 11:36 AM EDT Adam Bravo NP LAB BLOOD ORDERABLES Final Resul t Performing Organization Address City/[facility]/ZIP Co de Phone Number [facility] [address] [place] [address], [place] [phone] * Microalbumin creatinine urine ratio (03/29/2025 1:35 PM EDT) Creatinine, Urine 178.0 mg/dL LAB CHEMISTRY METHOD 03/29/2025 5:45 PM EDT [facility] Microalb, Ur 14.3 0.0 - 29.0 mg/L LAB CHEMISTRY METHOD 03/29/2025 5:45 PM EDT [facility] Microalb/Creat Ratio 8 <30 mg/g creat LAB CHEMISTRY METHOD 03/29/2025 5:45 PM EDT [facility] Urine Urine specimen obtained by clean catch procedure / Unknown Non-blood Collection / Unknown 03/29/2025 1:35 PM EDT 03/29/2025 1:35 PM EDT Christopher Daniels MD LAB URINE ORDERABLES Final Resu lt Performing Organization Address City/[facility]/ZIP Co de Phone Number [facility] [address] [place] [address], [place] [phone] * Hemoglobin A1c (03/29/2025 1:35 PM EDT) Hemoglobin A1C 6.2 <6.5 % LAB CHEMISTRY METHOD 03/29/2025 8:32 PM EDT [facility] Mean Bld Glu Estim. 131 mg/dL LAB CHEMISTRY METHOD 03/29/2025 8:32 PM EDT [facility] Blood Venous blood specimen / Unknown Venipuncture / Unknown 03/29/2025 1:35 PM EDT 03/29/2025 1:35 PM EDT Christopher Daniels MD LAB BLOOD ORDERABLES Final Resu lt Performing Organization Address City/[facility]/ZIP Co de Phone Number [facility] [address] [place] [address], [place] [phone] * HIV 1,2 antibody, p24 antigen with reflex to differentiation (09/23/2024 2:46 PM EST) [facility] HIV Combo AB/AG Negative Negative LAB CHEMISTRY METHOD 09/23/2024 7:29 PM EST [facility] Blood Venous blood specimen / Unknown Venipuncture / Unknown 09/23/2024 2:46 PM EST 09/23/2024 2:46 PM EST Narrative [facility] - 09/23/2024 7:29 PM EST This [...] ORDERABLES Final Resu lt Performing Organization Address City/[facility]/ZIP Co de Phone Number [facility] [address] [place] [address], [place] [phone] * Hepatitis C Screening (09/02/2022) [facility] Hepatitis C Screening abstracted Historical Provider HEALTH MAINTENANCE Final Result * Colonoscopy (09/18/2021) [facility] Colonoscopy no interpretation , abstracted Anatomical Region Laterality Modality Other Historical Provider HEALTH MAINTENANCE Final Result from Last 3 Months or Most Recently Relevant to Health Maintenance Insurance [employer] MED[employer]AGE Care Teams Law Examiner Relationship Specialty Start Date End Date Christopher Daniels MD [address] [place] [id number] PCP - General Internal Medicine 02/12/22
--- OUTSIDE RECORDS SUMMARY | 2025-09-08 16:10 | XMS_ITS | Clinical Summary ---
Author Organization [facility] Address [address] [place] [address] Care Team Providers Care Eeo Officer Name Role Phone Marisol Goddard MD Primary [...] age to complete this topic Care Teams Eeo Officer Relationship Specialty Start Date End Date Marisol Goddard MD [address] [facility] [address] [place] [address] YOSELYN Arora [phone] PCP - General Internal Medicine 03/27/21
== END 2025-09-08 14:08 | disposition home or self-care (01) ==
LOC: HO.RESP 14:07
PROVIDERS: PCP Internal Medicine; Visit Provider Internal Medicine
DX: R06.09 Other forms of dyspnea (principal)
CPT/HCPCS: 94060; 94640; 94727; 94729

== ENCOUNTER → 2025-09-08 14:13 | Outpatient (BNV) | payer MEDICARE, SELFPAY | PROVIDERS: PCP Internal Medicine; Visit Provider Hospitalist | DX: R06.09 Other forms of dyspnea (principal) | CPT/HCPCS: 94060; 94727; 94729 ==

== ENCOUNTER 2025-09-12 15:43 | Outpatient (AMB) | payer MEDICARE, SELFPAY ==
[2025-09-12 15:49] VITALS: BP 110/62; PULSE 68; O2SAT 96; BMI 29.9
--- NOTE | 2025-09-12 15:49 | MHC.OFFVIS ---
Vital Signs 09/12/25 15:49 Height 5 ft 9 in Weight 202 lb 13.204 oz BMI 29.9 BP 110/62 Blood Pressure Location Lt brachial Position Sitting Pulse 68 Pulse Source Pulse Oximeter Pulse Oximetry (%) 96 Oxygen Delivery Method Room Air Intake Visit Reasons: Sleep apnea Intake Note: pt is here for follow up of pft and sleep study, he does have cpap at home. Graphic User Interface Designer Required: No Allergies morphine Adverse Reaction (Verified 09/12/25 16:37) vomiting Medication List - Last Reconciled 09/12/25 by Alberto Addison MD allopurinol 200 mg PO DAILY ascorbate calcium (vitamin C) 500 mg PO DAILY aspirin 81 mg PO DAILY cetirizine (Zyrtec) 10 mg PO DAILY cholecalciferol (vitamin D3) 25 mcg PO DAILY epinephrine 0.3 mL IM kassandra (Zingiber officinalis) 500 mg PO DAILY ibuprofen 800 mg PO Q8H PRN losartan 25 mg PO DAILY metaxalone (Skelaxin) 800 mg PO TID PRN metoprolol tartrate 25 mg PO BID omeprazole 20 mg PO QAM rosuvastatin 10 mg PO DAILY vitamin B comp and C no.3 (B Complex Plus Vitamin C) 1 cap PO DAILY Do you need a note to return to daycare/school/sports/work: No HPI HPI Sleep apnea: Details: THIS 60 YEARS OLD GENTLEMAN WHO HAS BEEN SEEN BY ME RECENTLY IN RELATION TO HIS OBSTRUCTIVE SLEEP APNEA, AND ALSO SHORTNESS OF BREATH ON EXERTION IS HERE TODAY FOR FOLLOW-UP. HE HAS HAD A SPLIT NIGHT STUDY AND FOUND TO HAVE MILD OBSTRUCTIVE SLEEP APNEA WITH TOTAL SLEEP TIME AHI 6.4. CPAP TITRATION WAS PERFORMED AND HE NEEDED PRESSURE OF. 11 CM TO ACHIEVE OPTIMAL RESULTS IN THE SLEEP LAB HE WAS ON NASAL PILLOWS, BUT HAD SOME AIR LEAK AND RECOMMENDATION WAS THAT HE SHOULD USE A CHINSTRAP. HE HAS CPAP DEVICE ALREADY AND HAS BEEN USING IT WITH A FULL FACE MASK. HE SAY IS HE IS NOT ABLE TO TOLERATE THE NASAL MASK OR NASAL PILLOWS BECAUSE HE HAS CHRONIC ALLERGIC RHINITIS. HIS MAIN COMPLAINT IS THAT HE REMAINS TIRED DURING THE DAYTIME. HE GETS SHORT OF BREATH ON EXERTION, BUT DENIES ANY COUGH OR WHEEZING. HE STATES THAT HE HAD COVID INFECTION IN 2020 AND WONDERS IF HE HAS ANY RESIDUAL EFFECTS FROM THAT INFECTION. 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 [facility] Medical History Anxiety Dyspnea on exhalation MAYE on CPAP Sacroiliitis Disc degeneration, lumbar Social History Patient Tobacco Use Status: Never used Tobacco Review of Systems Const All systems reviewed & are unremarkable except as noted in HPI and below Eyes Reports no additional complaints ENT Reports nasal congestion (Only mild) and Reports neck pain Card Reports chest pain (Feeling of chest burning, not real pain) and Reports dyspnea on exertion (Mild to moderate, no cough or wheezing) Resp Reports as per HPI and Reports dyspnea on exertion (Mild to moderate, no cough or wheezing) GI Reports no additional complaints Reports no additional complaints Musc Reports back pain and Reports neck pain Skin/Breast Reports system reviewed and no additional complaints, except as documented Neuro Reports no additional complaints Psych Reports anxiety Endo Reports no additional complaints Melvin/Lymph Reports no additional complaints Aller/Immun Reports no additional complaints Physical Exam Vital Signs: Last Vital Signs Pulse 68 09/12/25 15:49 BP 110/62 09/12/25 15:49 Pulse Ox 96 09/12/25 15:49 Oxygen Delivery Method Room Air 09/12/25 15:49 BMI result Body Mass Index 29.9 Const General: healthy appearing, comfortable, no acute distress, alert, awake and anxious Orientation/consciousness: patient oriented x3 HEENT Head: Yes normal to inspection General nose exam: No nasal polyps present and No nasal discharge present Face and sinus: Yes sinuses nontender Mouth: oropharynx normal Throat: Yes posterior oropharynx normal Eyes General: appearance normal, both eyes and all related structures Neck Neck: Yes normal visual inspection, Yes no lymphadenopathy, Yes trachea midline and Yes no JVD Thyroid: Thyroid normal Chest Chest palpation & inspection: normal inspection of the chest, normal palpation of entire chest wall and no tenderness Resp Effort & Inspection: normal respiratory effort Auscultation: clear to auscultation bilaterally, no crackles, no rales, no rhonchi and no wheezes Cardio Palpation: normal PMI Rate: regular rate Rhythm: regular rhythm Heart sounds: no gallops and no murmurs Peripheral pulses: Peripheral pulses 2+ throughout GI Palpation (GI): Soft to palpation, nontender, No hepatosplenomegaly present and no masses Auscultation: normal bowel sounds Back/Spine/Pelvis Thoracic/Lumbar Spine: thoracic and lumbar spine normal to inspection and thoraco-lumbar ROM limited Skin General skin exam: no rashes or lesions noted Neuro General: patient oriented x3 and no focal motor deficits Cranial nerves: Yes CN's II-XII intact bilaterally Extrem General: Yes normal to inspection, Yes no clubbing, cyanosis or edema and Yes no calf tenderness Psych Appearance: grossly normal and well kempt Speech and movement: Normal speech and movement present Results Reviewed Results Reviewed: PULMONARY FUNCTION TEST ESSENTIALLY NORMAL. THERE IS NO EVIDENCE OF OBSTRUCTIVE OR RESTRICTIVE PULMONARY DISORDER. SPLIT NIGHT SLEEP STUDY CONFIRMED DIAGNOSIS OF MILD OBSTRUCTIVE SLEEP APNEA WITH TOTAL SLEEP TIME AHI 6.5, HE DID HAVE CPAP TITRATION AND NEEDED CPAP OF 11 CM TO ELIMINATE ALL OBSTRUCTIVE EVENTS Assessment & Plan Assessment & Plan (1) MAYE on CPAP: Comment: This gentleman was diagnosed to have obstructive sleep apnea, moderately severe, by is study on 01/31/2024. Has been on CPAP therapy with what he describes a fullface mask and Auto Pap mode 6-16 cmS . He claims that he has difficulty in using the CPAP as the mask remains uncomfortable. His compliance remains suboptimal. However we do not have any compliance report to go by. He is not followed by anyone for his sleep apnea. Code(s): G47.33 - Obstructive sleep apnea (adult) (pediatric) Category: Medical Plan: I discussed the results of his sleep study with him. Explained that he can continue to use CPAP but he will need a pressure of 11 cm. He can continue to use fullface mask if that is more comfortable for him. He is advised to bring the CPAP machine into our office and we will adjust the pressure on he gets connected to a local DME provider. (2) Dyspnea on exhalation: Comment: He say is that when he walks fast or goes up hill he starts having shortness of breath which is more than expected, he does not have any cough or wheezing. He does get burning. Sensation in her front of a chest Has had echocardiogram and a stress test which has not shown any significant ischemia. I explained to him that pulmonary function test is also all within normal range. My impression is that he has a feeling of some obstruction to the air and it is most likely psychological feeling. Code(s): R06.09 - Other forms of dyspnea Category: Medical Plan: He is reassured that there is no significant intrinsic lung disease. He does not need to use any inhaler. He can continue to do deep breathing exercises . Just to relax is mine (3) Anxiety: Comment: I think he does have a component of anxiety. And may be some depression. He feels better after the explanation that is pulmonary function test is normal, and after discussion about his sleep apnea and need to adjust the pressure. Code(s): F41.9 - Anxiety disorder, unspecified Category: Medical Plan: Patient reassured and feels better Coding Level of Care Code Est Pt Level 3 (91785) Diagnoses MAYE on CPAP G47.33 Dyspnea on exhalation R06.09 Anxiety F41.9
--- OUTSIDE RECORDS SUMMARY | 2025-09-12 19:59 | XMS_ITS | Encounter Summary ---
Author Organization [facility] Address [address] [place] [address] Care Team Providers Care Electrical Tester Battery Name Role Phone Christopher Daniels MD Primary Care Provider [phone] Reason for Visit * Reason Onset Date Comments Jury Duty 09/01/2025 Encounter Details Date Type Department Care Team (Late st Contact Info) Description 09/01/2025 Telephone Internal Medicine - [facility] [address] [place] [address] Christopher Daniels MD [address] [address] Social History Tobacco Use Types Packs/Day Years [...] AM EST Office Visit Internal Medicine - [facility] [address] [place] [address] Christopher Daniels MD [address] [place] [address] 11/30/2025 10:50 AM EST Office Visit [facility] - [address] [place] [phone] Sara Mcdonald MD [address] [place] [address] [address] [place] [address] 08/10/2026 11:20 AM EDT Office Visit Gastroenterology - [address] [place] [address] Valarie Dennis, DEVI [address] [place] [address] 08/28/2026 11:30 AM EDT Office Visit Nephrology - [facility] [address] [place] [address] Michael Plaza MD [address] [facility] [address] [place] [phone] documented as of this encounter Visit Diagnoses Not on filedocumented in this encounter Care Teams Electrical Tester Battery Relationship Specialty Start Date End Date Christopher Daniels MD [address] [place] [address] PCP - General Internal Medicine 02/12/22 documented as of this encounter
--- OUTSIDE RECORDS SUMMARY | 2025-09-12 19:59 | XMS_ITS | Data Portability ---
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 He will also see an international trade specialist in March for the dry eye [...] By Organization Details Last Modified Time 07/28/2025 01954 - Contact Dr. Snow's office promptly to [...] Organization Details Recorded Time Hypertensiv e disorder 93865204 Active 2017 NEDA MCCARTNEY MD [address] [place] [address], [place], [address], [facility] [place] 5 20:42:08 Coronary atheroscler osis 827236352 Active 2017 NEDA MCCARTNEY MD [address] [place] [address], [place], [address], [facility] - [facility] [place] 5 20:42:08 Displacemen t of cervical interverteb ral disc 771914283 Active 2017 NEDA MCCARTNEY MD [address] [place] [address], [place], [address], [facility] - [facility] [place] 5 20:42:08 Hyperlipide magaly 00048902 Active 2017 NEDA MCCARTNEY MD [address] [place] [address], [place], [address], [facility] - [facility] [place] 5 20:42:08 Prolapsed lumbar interverteb ral disc 977698256 Active 2018 NEDA MCCARTNEY MD [address] [place] [address], [place], [address], [place] [facility] 5 20:42:08 Chronic low back pain 573452411 Active 2020 NEDA MCCARTNEY MD [address] [address], [place], [address], [place] [facility] 5 20:42:08 Chronic ankle pain 5884563539779 9 Active 2020 NEDA MCCARTNEY MD [address] [address], [place], [address], [place] [facility] 5 20:42:08 Swelling of lower limb 709240615 Active 2021 NEDA MCCARTNEY MD [address] [address], [place], [address], [place] [facility] 20:42:08 Snoring 27033625 Active 2022 NEDA MCCARTNEY MD [address] [address], [place], [address], [place] [facility] 20:42:08 Cardiomegal y 2437761 Active 2022 NEDA MCCARTNEY MD [address] [address], [place], [address], [place] [facility] 20:42:08 Gout 71379269 Active 2022 NEDA MCCARTNEY MD 100 [facility] E [facility], [place], [address], [place] [facility] [place] 5 20:42:08 Steatotic liver disease 953187220 Active 2023 NEDA MCCARTNEY MD [address] [place] [address] E [facility], [place], [address], [place] [facility] 5 20:42:08 Burping 346669251 Active 2023 NEDA MCCARTNEY MD [address] [facility] E [facility], [place], [address], [place] [facility] 5 20:42:08 Dysphagia 39038968 Active 2023 NEDA MCCARTNEY MD [address] [facility] [place], [place], [address], [place] [facility] 20:42:08 Polyp of colon 52799562 Active 2023 NEDA MCCARTNEY MD 100 [facility],[address], [place], [address], [place] [facility] 20:42:08 Type 2 diabetes mellitus without complicatio n 691117786 Active 2023 NEDA MCCARTNEY MD 100 [facility],[address], [place], [address], [place] [facility] 20:42:08 Family history of malignant neoplasm of prostate 228675429 Active 2023 NEDA MCCARTNEY MD 100 [facility], E [facility], [place], [address], [place] [facility] 20:42:08 Mast cell activation syndrome 0316297783141 9100 Active 2024 NEDA MCCARTNEY MD [address] [facility] [place], [place], [address], [place] [facility] 14:12:54 Deviated nasal septum 996832239 Active 2024 NEDA MCCARTNEY MD 100 [facility], [address], [place], [address], [place] [facility] 20:40:33 Dacryocysti tis of left lacrimal sac 4988149739817 00 Active 2024 NEDA MCCARTNEY MD [address] [facility] [place], [place], [address], [place] [facility] 13:57:30 Problem Notes None recorded. Procedures Surgical History Date Name Laterality Status Provider Name and Address Organization Details Recorded Time 09/12/202 5 NasalEndoscop y_DP completed NEDA MCCARTNEY MD 100 [facility],[address] [address], [place], [address], [facility] 07/28/2025 13:58:06 5 NasalEndoscop y_DP completed NEDA MCCARTNEY MD 100 [facility],[address] [address], [place], [address], [facility] 01/25/2025 14:12:48 Cataract Surgery completed Anitha Rivera [facility] 01/25/2025 13:53:26 Imaging Results None recorded. Procedure Notes None recorded. Medical Equipment None Reported. Allergies Allergen ID Allergen Name Allergen Category Reaction Reaction Severity Criticality Documentation Date Start Date Code Code System Note Provider Name and Address Organization Details Recorded Time 755049 lisinopri l medicatio n Not available Not available Not available 01/25/20252020 85288 RxNorm NEDA MCCARTNEY MD 100 [facility],[address] [address], [place], [address], [facility] 20:42:28 959496 morphine medicatio n Not available Not available Not available 01/25/20252017 7052 RxNorm Other react ions and sever ities : 'Naus ea And Vomit ing'. NEDA MCCARTNEY MD [address] [facility],[address] [address], [place], [address], [facility] 20:42:28 114488 bee pollen environme nt,medica tion Not available Not available Not available 07/27/20252023 16880 7 RxNorm NEDA MCCARTNEY MD [address] [facility],[address] [place] [address], [place], [address], [facility] 5 20:42:27 Medications Name Sig Start Date [...] Updated DateTime 07/28/2025 175.26 cm 29.5 kg/m2 05026.47 g TOPHER MORGAN [place] [facility] 07/28/2025 13:39:01 Social History None recorded. Functional Status None recorded. Mental Status None recorded. Family History Nothing Reported. Medical History Condition Response Diabetes Y Anxiety Y GERD/Reflux Y High Cholesterol Y Heart Attack ([place]) Y Migraines Y Hypertension Y Immunizations Vaccine Type Date Status Note Provider Nam e and Address Organization Details Recorded Time Influenza, split virus, quadrivalent, preservative 4 completed NEDA MCCARTNEY MD [address] [facility] [place] [address] [place] [address], [address], [place] [facility] 07/27/2025 20:42:15 Influenza, MDCK, quadrivalent, PF 0 completed NEDA MCCARTNEY MD [address] [place], [place] [address]on [place],[address], [address], [place] [facility] 07/27/2025 20:42:15 Influenza, MDCK, quadrivalent, PF 2 completed NEDA MCCARTNEY MD [address] [place], [place] [address]on [place],[address], [address], [place] [facility] 07/27/2025 20:42:15 zoster recombinant 3 completed NEDA MCCARTNEY MD [address] [place], [place] [address],[address], [address], [place] [facility] 07/27/2025 20:42:15 zoster recombinant 2 completed NEDA MCCARTNEY MD [address] [place], [place] [address]on [place],[address], [address], [place] [facility] 07/27/2025 20:42:15 COVID-19, mRNA, LNP-S, PF, 100 mcg/0.5mL dose or 50 mcg/0.25mL dose 1 completed NEDA MCCARTNEY MD [address] [place], [place] [address] [address] [place] [address], [address], [place] [facility] 07/27/2025 20:42:15 COVID-19, mRNA, LNP-S, PF, 100 mcg/0.5mL dose or 50 mcg/0.25mL dose 1 completed NEDA MCCARTNEY MD [address] [facility] [place] [address] [place] [address], [address], [place] [facility] 07/27/2025 20:42:15 COVID-19, mRNA, LNP-S, PF, 100 mcg/0.5mL dose or 50 mcg/0.25mL dose 2 completed NEDA MCCARTNEY MD [address] [facility] [place] [address] [place] [address], [address], [place] [facility] 07/27/2025 20:42:15 COVID-19, mRNA, LNP-S, PF, 100 mcg/0.5mL dose or 50 mcg/0.25mL dose 1 completed NEDA MCCARTNEY MD [address] [facility] [place] [address] [place] [address], [address], [place] [facility] 07/27/2025 20:42:15 COVID-19, mRNA, LNP-S, PF, 30 mcg/0.3 mL dose 1 completed NEDA MCCARTNEY MD 100 [facility],[address], [address], [place] [facility] 07/27/2025 20:42:15 Pneumococcal conjugate PCV20, polysaccharide [id number] conjugate, adjuvant, PF 3 completed NEDA MCCARTNEY MD [address] [facility] [place],[address], [address], [place] [facility] 07/27/2025 20:42:15 COVID-19, mRNA, LNP-S, PF, 30 mcg/0.3 mL dose, lani-sucrose 2 completed NEDA MCCARTNEY MD [address] [facility] [place] [address] [place] [address], [address], [place] [facility] 07/27/2025 20:42:15 pneumococcal polysaccharide PPV23 8 completed NEDA MCCARTNEY MD [address] [facility] [place] [address] [place] [address], [address], [place] [facility] 07/27/2025 20:42:15 Tdap 9 completed NEDA MCCARTNEY MD [address] [facility] [place] [address] [place] [address], [address], [place] [facility] 07/27/2025 20:42:15 Tdap 0 completed NEDA MCCARTNEY MD [address] [facility] [place] [address] [place] [address], [address], [place] [facility] 07/27/2025 20:42:15 Tdap 4 completed NEDA MCCARTNEY MD [address] [facility] [place] [address] [place] [address], [address], [place] [facility] 07/27/2025 20:42:15 Influenza, split virus, trivalent, preservative 7 completed NEDA MCCARTNEY MD 100 [facility],[place] [address] [place] [address], [address], [place] [facility] 07/27/2025 20:42:15 Influenza, split virus, trivalent, preservative 0 completed NEDA MCCARTNEY MD 100 [facility],[place] [address] [place] [address], [address], [place] [facility] 07/27/2025 20:42:15 Influenza, split virus, trivalent, preservative 1 completed NDEA MCCARTNEY MD 100 [facility],[address], [address], [place] [facility] 07/27/2025 20:42:15 Influenza, split virus, trivalent, PF 5 completed NEDA MCCARTNEY MD [address] [facility] [place] [address] [place] [address], [address], [place] [facility] 07/27/2025 20:42:15 Influenza, split virus, trivalent, PF 4 completed NEDA MCCARTNEY MD 100 [facility],[place] [address] [place] [address], [address], [place] [facility] 07/27/2025 20:42:15 influenza, whole 2 completed NEDA MCCARTNEY MD [address] [place] [address], [address], [place] [facility] 07/27/2025 20:42:15 Hep B, adult 4 completed NEDA MCCARTNEY MD [address] [place] [address], [address], [place] [facility] 07/27/2025 20:42:15 Hep B, adult 4 completed NEDA MCCARTNEY MD [address] [place] [address], [address], [place] [facility] 07/27/2025 20:42:15 Influenza, split virus, quadrivalent, PF 6 completed NEDA MCCARTNEY MD [address] [place] [address], [address], [place] [facility] 07/27/2025 20:42:15 Influenza, split virus, quadrivalent, PF 3 completed NEDA MCCARTNEY MD [address] [place] [address], [address], [place] [facility] 07/27/2025 20:42:15 Influenza, split virus, quadrivalent, PF 1 completed NEDA MCCARTNEY MD [address] [place] [address], [address], [place] [facility] 07/27/2025 20:42:15 Past Encounters Encounter ID Performer Location Encounter Start Date Encounter Closed Date Diagnosis/Indication Diagnosis SNOMED-CT Code Diagnosis ICD10 Code Diagnosis IMO Codes Diagnosis Note [id number] NEDA MCCARTNEY MD [facility] [address] [address] 01/25/2025 13:16:21 01/25/2025 14:21:55 Mast cell activation syndrome [id number] 1040970 D89.40 [id number] NEDA MCCARTNEY MD [facility] [address] [address] 07/28/2025 13:21:26 07/28/2025 14:00:31 Mast cell activation syndrome 8797077951 7825686 D89.40 Patient has been using the cetirizine for his MCAS condition Deviated nasal septum 12 6800240 J34.2 717239 His nasal endoscopy was benign with a slight septal deflection to the right. No sinusitis or nasal polyps. Dacryocyst itis of left lacrimal sac 5704339751 39360 H04.302 [id number] Health Concerns Section Related Observation LastModified by Organization Detai ls LastModified Time None Recorded Concern Status LastModified by Organization Details LastModified Time None Recorded Advance Directives Directive None Recorded Payers Insurance Date Sequence Insurance Name Policy Number Policy Pinto Covered Member ID Pinto Member ID Guarantor Name 07/25/2025 1 [employer] [id number] Orionmariano Haas [id number] Orion Haas Notes Date Note Type Note Provider Name and Address Organization Details Recorded Time 01/25/2025 text/html ROS as noted in the HPI allergies - itchy throattriggers cough, sneezewatery eyes 2000 exposed to industrial ammonia - lost sense of smell Dr Smith ([facility]), dx with MCAS (Mast cell activation syndrome)frequent lip swelling controlled with rx cetirizine QOD NEDA MCCARTNEY MD [address] [place] [address], [address]RUST [place] [facility] 01/25/2025 14:20:50 07/28/2025 text/html allergies - itchy throat triggers cough, sneeze watery eyes 2000 exposed to industrial ammonia - lost sense of smell Dr Smith ([facility]), dx with MCAS (Mast cell activation [...] during the gym incident. NEDA MCCARTNEY MD [address] [place] [address], [address], [facility] 07/28/2025 14:00:08
--- OUTSIDE RECORDS SUMMARY | 2025-09-12 19:59 | XMS_ITS | Clinical Summary ---
Author Organization [place] [address] Stephanie Formerly [facility] Building Address [address] [place], [place] [address], [place] [address] Phone Care Team Providers Care Hob Grinder Name Role Phone Christopher Daniels MD Primary Care Provider [phone] Allergies Active Allergy Reactions Criticality Noted Date Comments Bee Pollen 09/23/2024 Lisinopril 06/14/2021 Morphine Nausea And Vomiting 03/03/2018 Other Swelling Medium 07/08/2022 Medications amitriptyline (ELAVIL) 10 mg tablet Take 1 Tablet by mouth at bedtime for 180 days. 3 Active methocarbamoL (ROBAXIN) 750 mg tablet Take 1 Tablet by mouth. Active aspirin 81 mg EC tablet Take 81 mg by mouth daily. 8 Active glucose blood test strip Use to check blood sugars twice daily 4 Active blood-glucose meter kit Check blood sugar twice a day. 4 Active ONETOUCH DELICA LANCETS MISC Use to test blood sugars twice daily 4 Active EPINEPHrine (EPIPEN) 0.3 mg/0.3 mL injection Inject 0.3 mL (0.3 mg total) into the thigh if needed for anaphylaxis. Call 911 after use. 2 each 1 4 09/23/20 25 Active omeprazole (PriLOSEC) [address] capsuleIndicatio ns:Dysphagia, unspecified type TAKE 1 CAPSULE BY MOUTH DAILY. TAKE IN AM ON EMPTY STOMACH, WAIT 30 MINS AND THEN EAT 90 capsule 3 5 Active metoprolol tartrate (LOPRESSOR) 25 mg tablet TAKE 1 TABLET BY MOUTH TWICE A DAY 180 tablet 1 5 Active cetirizine (ZyrTEC) 10 mg tablet Take 1 tablet (10 mg total) by mouth 1 (one) time each day. Active allopurinoL (ZYLOPRIM) 100 mg tablet TAKE 2 TABLETS BY MOUTH EVERY DAY 180 tablet 1 5 Active B complex-vitamin C-folic acid (NEPHRO-MICHELLE) 0.8 mg tablet Take 1 tablet by mouth 1 (one) time each day. Active kassandra, Zingiber officinalis, 500 mg capsule Take by mouth. Acti ve cholecalciferol (VITAMIN D-3) 50 mcg (2,000 unit) [...] 1 TIME EACH DAY. 90 tablet 1 5 Active losartan (COZAAR) 25 mg tablet TAKE 1 TABLET BY MOUTH EVERY DAY 90 tablet 3 5 Active amoxicillin-clav ulanate (AUGMENTIN) 500-125 mg per tablet Take 1 tablet by mouth 2 (two) times a day. 5 Active Active Problems Problem Noted Date Diagnosed Date [...] complication, without long-term current use of insulin ([facility] V24, [facility] V28) 09/23/2024 Family history of [...] 03/08/2019 Overview (08/17/2024): Follows with pain management, [facility], Dr. Earl Ramsey Cervical disc herniation 03/03/2018 Coronary atherosclerosis 03/03/2018 Overview (08/17/2024): - Status post PCI to the mid LAD after presenting with an anteroseptal STEMI at [facility] in 2016; after the procedure, there was residual clot [...] low carbohydrate diet. Also recommended for now [id number] fish oil supplements. Assessment & Plan (03/28/2025 [...] Team Description 09/01/2025 Telephone Internal Medicine - [facility] [address] [place], [place] [phone] Christopher Daniels MD 08/29/2025 11:30 AM EDT [facility] [address] [facility] [place] [phone] Michael Plaza MD Stage 3 chronic kidney disease, unspecified whether stage 3a or 3b CKD (CMS/HCC V24, CMS/HCC V28) (Primary Dx); Essential hypertension 08/17/2025 Results Follow-Up Gastroenterology - [place] [address] [place] [phone] Valarie Dennis NP 08/15/2025 9:01 AM EDT - 08/15/2025 11:59 PM EDT Hospital Encounter Ultrasound - [facility] [address] [place] [phone] Fatty liver Discharge Disposition: Home or Self Care 08/10/2025 11:20 AM EDT Office Visit Gastroenterology - [place] [address] [place] [phone] Valarie Dennis, DEVI Family history of colon cancer in father (Primary Dx); Fatty liver; Obesity (BMI 30-39.9) 07/28/2025 Telephone [facility] - [address] [place] [phone] Sara Mcdonald MD 07/18/2025 Telephone Internal Medicine - [facility] [address] [place] [address] Christopher Daniels MD 06/30/2025 10:00 AM EDT Ancillary Procedure [facility] - [address] [place] [phone] Coronary artery disease, unspecified vessel or lesion type, unspecified whether angina present, unspecified whether eyak or transplanted heart from Last 3 Months Immunizations Immunization Administration Dates Next Due Hepatitis B (Ikpgsyk-B-Itpyq , Recombivax HB-Adult) 19yo and older 04/12/2025,10/25/2024,09/23/2024 [...] atherosclerosis 03/03/2018 DX:Zeinab nary atherosclerosis; COMMENT: Comments: NC 02/16/16 with angioplasty and stent x1. Hyperlipidemia [...] AM EST Office Visit Internal Medicine - [facility] [address] [place] [address] Christopher Daniels MD [address] [place] [address] 11/30/2025 10:50 AM EST Office Visit [facility] - [facility] [address] [facility] [address] [place] [phone] Sara Mcdonald MD [address] [place] [address] [address] [place] [phone] 08/10/2026 11:20 AM EDT Office Visit Gastroenterology - [address] [place] [phone] Valarie Dennis, DEVI [address] [place] [phone] 08/28/2026 11:30 AM EDT Office Visit Nephrology - [facility] [address] [place] [phone] Michael Plaza MD [address] [facility] [address] [place] [phone] Health Maintenance Due Date Last Done Comments [...] type, unspecified whether angina present, unspecified whether eyak or transplanted heart COMPREHENSIVE METABOLIC PANEL Routine 04/12/2025 11:36 AM EDT Coronary atherosclerosis of eyak coronary artery LIPID PANEL WITH REFLEX TO DIRECT LDL Routine 04/12/2025 11:36 AM EDT Coronary atherosclerosis of eyak coronary artery MICROALBUMIN CREATININE URINE RATIO Routine [...] Signed Date: 08/15/2025 11:39 ET Workstation ID: [id number] Transcribed By: Self Edit Transcribed Date: 08/15/2025 [...] Signed Date: 08/15/2025 11:39 ET Workstation ID: [id number] Transcribed By: Self Edit Transcribed Date: 08/15/2025 11:32 ET us Valarie Dennis LIFESTYLE DIRECTOR IMG US PROCEDURES Final Result * TRANSTHORACIC [...] 3.8 cm2 CV PACS Left Atrium Minor Jackman 5.7 cm CV PACS Left Atrium Major Jackman 5.5 cm CV PACS LA Area Sys (A2C) 20 cm2 CV PACS LA Area Sys (A4C) 19 cm2 CV PACS LA Volume (BP) 53 mL CV PACS RA Area 19.3 cm2 CV PACS RA 2D Volume 56 mL CV PACS Aortic Sinus Valsalva 3.7 cm CV PACS Ascending Aorta 3.4 cm CV PACS MV Deceleration [place] 3.3 m/s2 CV PACS E Wave Deceleration Time 167 119 - 242 ms CV PACS MV PHT 49 ms CV PACS MV Peak A Albreto 0.70 m/s CV PACS MV Peak E [...] was adequate. Additional technique includes myocardial strain. Adam Bravo NP CV ECHO PROCEDURES Final Result * Lipid panel with reflex to direct LDL (04/12/2025 11:36 AM EDT) Cholesterol 110 0 - 200 mg/dL LAB CHEMISTRY METHOD 04/12/2025 6:11 PM EDT [facility] Triglycerides 100 0 - 150 mg/dL LAB CHEMISTRY METHOD 04/12/2025 6:11 PM EDT [facility] HDL 42 >=40 mg/dL LAB CHEMISTRY METHOD 04/12/2025 6:11 PM EDT [facility] LDL Calculated 48 0 - 100 mg/dL LAB CHEMISTRY METHOD 04/12/2025 6:11 PM EDT [facility] VLDL Cholesterol Lee 20 mg/dL LAB CHEMISTRY METHOD 04/12/2025 6:11 PM EDT [facility] Non HDL Chol. (LDL+VLDL) 68 <145 mg/dL LAB CHEMISTRY METHOD 04/12/2025 6:[address] [facility] Chol/HDL Ratio 2.6 0.0 - 4.4 LAB CHEMISTRY METHOD 04/12/2025 6:11 PM T [facility] Blood Venous blood specimen / Unknown Venipuncture / Unknown 04/12/2025 11:36 AM EDT 04/12/2025 11:36 AM EDT us Adam Bravo NP LAB BLOOD ORDERABLES Final Resul t [facility] [address] [place] [address], * (ABNORMAL) Comprehensive metabolic panel (04/12/2025 11:36 AM EDT) Sodium 138 133 - 145 mmol/L LAB CHEMISTRY METHOD 04/12/2025 6:[address] [facility] Potassium 4.6 3.5 - 5.5 mmol/L LAB CHEMISTRY METHOD 04/12/2025 6:[address] [facility] Chloride 105 96 - 110 mmol/L LAB CHEMISTRY METHOD 04/12/2025 6:[address] [facility] CO2 28 21 - 32 mmol/L LAB CHEMISTRY METHOD 04/12/2025 6:[address] [facility] Anion Gap 5 3 - 11 LAB CHEMISTRY METHOD 04/12/2025 6:[address] [facility] Glucose 101(H) 70 - 100 mg/dL LAB CHEMISTRY METHOD 04/12/2025 6:[address] [facility] BUN 14 5 - 25 mg/dL LAB CHEMISTRY METHOD 04/12/2025 6:[address] [facility] Creatinine 1.40(H) 0.70 - 1.30 mg/dL LAB CHEMISTRY METHOD 04/12/2025 6:[address] [facility] eGFR 58(L) >=60 mL/min/1. 73m2 LAB CHEMISTRY METHOD 04/12/2025 6:[address] [facility] Comment:Calculation based on the Chronic Kidney Disease Epidemiology Collaboration (CKD-EPI) equation refit without adjustment for race. BUN/Creatinine Ratio 10.0 LAB CHEMISTRY METHOD 04/12/2025 6:[address] [facility] Calcium 8.8 8.5 - 10.5 mg/dL LAB CHEMISTRY METHOD 04/12/2025 6:[address] [facility] AST (SGOT) 26 10 - 42 unit/L LAB CHEMISTRY METHOD 04/12/2025 6:[address] [facility] ALT (SGPT) 28 10 - 60 unit/L LAB CHEMISTRY METHOD 04/12/2025 6:[address] [facility] Alkaline Phosphatase 51 42 - 121 unit/L LAB CHEMISTRY METHOD 04/12/2025 6:[address] [facility] Total Protein 7.3 6.0 - 8.0 g/dL LAB CHEMISTRY METHOD 04/12/2025 6:[address] [facility] Albumin 4.1 3.2 - 5.0 g/dL LAB CHEMISTRY METHOD 04/12/2025 6:[address] [facility] Total Bilirubin 0.9 0.0 - 1.4 mg/dL LAB CHEMISTRY METHOD 04/12/2025 6:[address] [facility] Blood Venous blood specimen / Unknown Venipuncture / Unknown 04/12/2025 11:36 AM EDT 04/12/2025 11:36 AM EDT Adam Bravo NP LAB BLOOD ORDERABLES Final Resul t Performing Organization Address [facility]/ZIP Co de Phone Number [facility] [address] [place] [address], [place] [phone] * Microalbumin creatinine urine ratio (03/29/2025 1:35 PM EDT) Creatinine, Urine 178.0 mg/dL LAB CHEMISTRY METHOD 03/29/2025 5:45 PM EDT [facility] Microalb, Ur 14.3 0.0 - 29.0 mg/L LAB CHEMISTRY METHOD 03/29/2025 5:45 PM EDT [facility] Microalb/Creat Ratio 8 <30 mg/g creat LAB CHEMISTRY METHOD 03/29/2025 5:45 PM EDT [facility] Urine Urine specimen obtained by clean catch procedure / Unknown Non-blood Collection / Unknown 03/29/2025 1:35 PM EDT 03/29/2025 1:35 PM EDT Christopher Daniels MD LAB URINE ORDERABLES Final Resu lt Performing Organization Address [facility]/ZIP Co de Phone Number [facility] [address] [place] [address], [place] [phone] * Hemoglobin A1c (03/29/2025 1:35 PM EDT) Hemoglobin A1C 6.2 <6.5 % LAB CHEMISTRY METHOD 03/29/2025 8:32 PM EDT [facility] Mean Bld Glu Estim. 131 mg/dL LAB CHEMISTRY METHOD 03/29/2025 8:32 PM EDT [facility] Blood Venous blood specimen / Unknown Venipuncture / Unknown 03/29/2025 1:35 PM EDT 03/29/2025 1:35 PM EDT Christopher Daniels MD LAB BLOOD ORDERABLES Final Resu lt Performing Organization Address City/[facility]/ZIP Co de Phone Number [facility] [address] [place] [address], * HIV 1,2 antibody, p24 antigen with reflex to differentiation (09/23/2024 2:46 PM EST) [facility] HIV Combo AB/AG Negative Negative LAB CHEMISTRY METHOD 09/23/2024 7:29 PM EST [facility] Blood Venous blood specimen / Unknown Venipuncture / Unknown 09/23/2024 2:46 PM EST 09/23/2024 2:46 PM EST Narrative [facility] - 09/23/2024 7:29 PM [...] ORDERABLES Final Resu lt Performing Organization Address [facility]/ZIP Co de Phone Number [facility] [address] [place] [address], * Hepatitis C Screening (09/02/2022) [facility] Hepatitis C Screening abstracted Historical Provider HEALTH MAINTENANCE Final Result * Colonoscopy (09/18/2021) [facility] Colonoscopy no interpretation , abstracted Anatomical Region Laterality Modality Other us Historical Provider HEALTH MAINTENANCE Final Result from Last 3 Months or Most Recently Relevant to Health Maintenance Insurance [employer] MEDICARE ADVANTAGE Care Teams Hob Grinder Relationship Specialty Start Date End Date Christopher Daniels MD [address] [place] [address] PCP - General Internal Medicine 02/12/22
--- OUTSIDE RECORDS SUMMARY | 2025-09-12 19:59 | XMS_ITS | Encounter Summary ---
Author Organization [facility] Address [address] [place] [address] Care Team Providers Care Acoustic Intelligence Specialist Name Role Phone Christopher Daniels MD Primary Care Provider [phone] Encounter Details Date Type Department Care Team (Late Contact Info) Description 08/17/2025 Results Follow-Up Gastroenterology - [place] [address] [place] [phone] Valarie Dennis, DEVI [address] [place] [phone] Social History Tobacco Use Types Packs/Day Years [...] AM EST Office Visit Internal Medicine - [facility] [address] [place] [address] Christopher Daniels MD [address] [place] [address] 11/30/2025 10:50 AM EST Office Visit [facility] - [address] [place] [phone] Sara Mcdonald MD [address] [place] [address] [address] [place] [phone] 08/10/2026 11:20 AM EDT Office Visit Gastroenterology - [address] [place] [phone] Valarie Dennis, DEVI [address] [place] [phone] 08/28/2026 11:30 AM EDT Office Visit Nephrology - [facility] [address] [place] [phone] Michael Plaza MD [address] [facility] [address] [place] [phone] documented as of this encounter Visit Diagnoses Not on filedocumented in this encounter Care Teams Acoustic Intelligence Specialist Relationship Specialty Start Date End Date Christopher Daniels MD [facility] [place] [address] PCP - General Internal Medicine 02/12/22 documented as of this encounter
--- OUTSIDE RECORDS SUMMARY | 2025-09-12 19:59 | XMS_ITS | Clinical Summary ---
Author Organization [facility] Address [address] [place] [address] Care Team Providers Care Reduction Furnace Operator Helper Name Role Phone Marisol Goddard MD Primary [...] age to complete this topic Care Teams Reduction Furnace Operator Helper Relationship Specialty Start Date End Date Marisol Goddard MD [address] [facility] [address] [place] [address] YOSELYN Arora [phone] PCP - General Internal Medicine 03/27/21
--- OUTSIDE RECORDS SUMMARY | 2025-09-12 20:00 | XMS_ITS | Data Portability ---
Author Organization [facility], [employer] Address [address] [place] [address] Thu DEXTERYOSELYN [address] Care Team Providers Care Electrical Maintenance Supervisor Name Role Phone NADIA RASMUSSEN Primary Care [...] available Not available 12/18/2021 7052 RxNorm Mila [facility] Neurology [facility] 2 11:18:32 Medications Name Sig Start Date [...] Updated DateTime 12/18/2021 172.72 cm 33.5 kg/m2 44351.32 g 12 /min Mila Gaitan [facility] 12/18/2021 11:18:24 Social History Question Answer Notes LastModified by [employer] Details LastModified Time Tobacco Smoking Status Never Smoker [facility] 12/18/2021 11:20:43 What Is Your Level Of Caffeine Consumption? None Information not available 12/18/2021 What Is The Highest Grade Or Level Of School You Have Completed Or The Highest Degree You Have Received? [id number] [facility] Information not available 12/18/2021 Which Of Your Hands Is Dominant? Right Information not available 12/18/2021 What Is Your Relationship Status? 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 Health Concerns Section Related Observation LastModified by Organization Detai ls LastModified Time None Recorded Concern Status LastModified by Organization Details LastModified Time None Recorded Advance Directives Directive None Recorded Payers Insurance Date Sequence Insurance Name Policy Number Policy Pinto Covered Member ID Pinto Member ID Guarantor Name 12/18/2021 1 [facility] Orion Haas [id number] Orion Haas 12/18/2021 2 MEDICARE B-[place]: [facility] [employer] Orion Haas [id number] Orion Haas Notes Date Note Type [...] suggestions. He has appointment pending with another user experience researcher, Dr. Ortiz. He notes that with the [...] extends into his groin. Stevan Lozoya MD [address] [place] [address] [place], [phone], [facility] Neurology [facility] 12/18/2021 12:22:23
== END 2025-09-12 16:30 | disposition home or self-care (01) ==
LOC: HO.HPS 15:43
PROVIDERS: PCP Internal Medicine; Visit Provider Internal Medicine
DX: G47.33 Obstructive sleep apnea (adult) (pediatric) (principal); R06.09 Other forms of dyspnea; F41.9 Anxiety disorder, unspecified
CPT/HCPCS: 99213

== ENCOUNTER → 2025-09-12 15:43 | Outpatient (BNVA) | payer MEDICARE, SELFPAY | PROVIDERS: PCP Internal Medicine; Visit Provider Internal Medicine | DX: G47.33 Obstructive sleep apnea (adult) (pediatric) (principal); R06.09 Other forms of dyspnea; F41.9 Anxiety disorder, unspecified | CPT/HCPCS: 99212 ==